=== PATIENT | female | born 1980 | race Caucasian/White ===

== ENCOUNTER → 2023-04-16 14:17 | Outpatient (CLI) | payer MEDICAID, SELFPAY ==
--- NOTE | 2023-04-16 | DI.RAD_ITS ---
Exam(s) XR SACRUM COCCYX XR LUMBAR SPINE COMPLETE EXAM: XR LUMBAR SPINE COMPLETE CLINICAL HISTORY: LOW BACK PAIN, ACUTE M54.59. TECHNIQUE: 2D digital imaging was performed. Five views of the lumbar spine. Four views of the sac rum and coccyx. COMPARISON: CR XR SACRUM COCCYX from 04/16/2023 FINDINGS: BONES: No fracture or destructive lesion. Vertebral body heights are maintained. No facet hypertroph y identified. Small endplate osteophytes L4 and L5. No spondylolysis or spondylolisthesis. DISKS: Intervertebral disc spaces are maintained. Joints: SI joints and pubic symphysis are unremarkable. Her no bony erosions. Hip joint spaces are maintained. ALIGNMENT: Lumbar spinal alignment is within normal limits. SOFT TISSUE: Normal. IMPRESSION: Minimal degenerative changes. DATA REPOSITORY: RADIATION DOSE DELIVERED:
== END ==
PROVIDERS: Visit Provider Nurse Practitioner Family
DX: M54.59 Other low back pain (principal)
CPT/HCPCS: 72110; 72220

== ENCOUNTER 2023-06-29 11:24 | Emergency (ER) | payer MEDICAID, SELFPAY ==
[2023-06-29 11:30] VITALS: BP 121/69; PULSE 79; RESP 18; TEMP 36.8; O2SAT 97
[2023-06-29 13:02] LABS: Abs Immature Grans 0.02 10^3/uL (0.0-0.06); Absolute Basophil Count 0.04 10^3/uL (0.0-0.2); Absolute Eosinophil Count 0.05 10^3/uL (0.0-0.7); Absolute Lymphocyte Count 2.07 10^3/uL (1.2-3.4); Absolute Monocyte Count 0.41 10^3/uL (0.1-0.8); Absolute Neutrophil Count 3.85 10^3/uL (1.2-6.7); Basophils % 0.6; Eosinophils % 0.8; HCT 41.8 % (36.0-46.0); HGB 13.8 g/dL (11.2-15.7); Immature Grans % 0.3; Lymphocytes % 32.1; MCV 91 fL (80-95); MPV 9.1 fL (8.0-11.0); Monocytes % 6.4; Neutrophils % 59.8; Platelet Count 373 10^3/uL (130-400); RDW-SD 39.8 fL; WBC 6.44 10^3/uL (4.4-10.8)
[2023-06-29 13:20] LABS: ALT 14 U/L (14-59); AST 15 U/L (15-37); Alkaline Phosphatase 71 U/L (46-116); Anion Gap 7.4 mmol/L (3-11); BUN 7 mg/dL (7-18); Bilirubin, Direct 0.1 mg/dL (0.0-0.2); Bilirubin, Total 0.5 mg/dL (0.2-1.0); CO2 28.6 mmol/L (21.0-32.0); CREATININE 0.7 mg/dL (0.55-1.02); Calcium 9.3 mg/dL (8.5-10.1); Chloride 104 mmol/L (98-107); Estimated GFR 111.36 (mL/min/1.73m2); Glucose 90 mg/dL (74-106); Potassium 4.3 mmol/L (3.5-5.1); Sodium 140 mmol/L (136-145); Total Protein 7.8 g/dL (6.4-8.2)
[2023-06-29] MEDS: Ketorolac 30 MG/ML VIAL IVP (13:31)
--- NOTE | 2023-06-29 13:32 | W.ED.GENAD ---
HPI General Stated Complaint: Abd Prob Mode of arrival: ambulatory. RADHA: 3 Date/Time Provider Initiated Documentation: 06/29/23 11:50. Limitations to Documentation: no limitations. Information obtained by: patient. History of Present Illness abd pain moderate 5 aching (Cramping) abdomen reports no radiation day(s) (5, reports previous symptoms previously) constant No relieving factors improve symptom(s), Other factors that worsen symptoms (Drinking carbonated beverages such as Mountain Dew or Pepsi) other (Back pain radiating down left leg secondary to fall roughly 10 days ago) none Review of Systems Constitutional Constitutional: Denies fever(s) and Denies weakness Cardiovascular Cardiovascular: Denies chest pain Respiratory Respiratory: Denies cough Gastrointestinal Gastrointestinal: Reports abdominal pain, Denies melena, Denies bloating, Denies hematochezia, Denies change in bowel habits, Denies constipation, Denies diarrhea, Denies nausea, Denies vomiting and Denies hematemesis Genitourinary Genitourinary: Denies dysuria Musculoskeletal Musculoskeletal: Reports back pain, Denies numbness, Denies stiffness and Denies tingling Integumentary/Breasts Skin/Breast: Denies rash Neurologic Neurologic: Denies numbness, Denies tingling and Denies weakness PFSH All Active Problems Abdominal pain (Acute) Left sided sciatica (Acute) Social History Smoking/Tobacco Use Status: Never Smoking risk assessment performed?: Yes Alcohol Intake: never Substance use type: does not use Do you feel safe at home: Yes Do you feel safe in your relationship?: Yes Exam Const General: cooperative, healthy appearing, comfortable and no acute distress Orientation: alert and awake HENMT Head: normal to inspection, normocephalic and atraumatic Mouth: moist mucous membranes Eyes Conjunctivae: conjunctivae normal Neck Neck: normal visual inspection, trachea midline and supple Resp Effort & Inspection: normal respiratory effort and able to speak in complete sentences Auscultation: clear to auscultation bilaterally Cardio Rate: regular rate Rhythm: regular rhythm GI Inspection: normal to inspection Palpation: soft, not firm, no guarding, not rigid and nontender Auscultation: normal bowel sounds Back/Spine/Pelvis Back: no CVA tenderness Thoracic/Lumbar Spine: No lumbar spinal tenderness, straight leg raise positive (Left side, negative right) and other (Diffuse mild left-sided lumbar tenderness, no bony point tenderness. ) Skin General skin exam: no rashes or lesions noted Neuro General: patient alert, patient awake, moves all extremities and no focal motor deficits Gait: normal gait Motor: muscle tone normal throughout Sensory Exam: no sensory deficits noted Extrem General: normal to inspection, full ROM, capillary refill normal, no pedal edema and no calf tenderness Psych Appearance: grossly normal Mental Status: mental status grossly normal Course Vital Signs Vital signs: Vital Signs Temperature 36.8 C 06/29/23 11:30 Pulse 79 06/29/23 11:30 Respiratory Rate 18 06/29/23 11:30 Blood Pressure 121/69 06/29/23 11:30 Pulse Oximetry 97 06/29/23 11:30 Temperature 36.8 C 06/29/23 11:30 Temperature Source Temporal Artery Scan 06/29/23 11:30 Pulse 79 06/29/23 11:30 Respiratory Rate 18 06/29/23 11:30 Respiratory Effort Normal 06/29/23 11:50 Blood Pressure 121/69 06/29/23 11:30 Blood Pressure Position Sitting 06/29/23 11:30 Pulse Oximetry 97 06/29/23 11:30 Oxygen Delivery Method Room Air 06/29/23 11:30 Oxygen Flow Rate 0 06/29/23 11:30 Pain Level 8 06/29/23 11:50 Lab/Test Results Lab/Test Results: Laboratory Tests Range/Units 06/29/23 12:55 WBC (4.4-10.8) 10^3/uL 6.44 RBC (3.93-5.22) 10^6/uL 4.60 Hgb (11.2-15.7) g/dL 13.8 Hct (36.0-46.0) % 41.8 MCV (80-95) fL 91 MCH (27.0-33.0) pg 30.0 MCHC (32.0-36.0) % 33.0 RDW (11.7-14.6) % 12.0 Plt Count (130-400) 10^3/uL 373 MPV (8.0-11.0) fL 9.1 Immature Gran % 0.3 Neutrophils % 59.8 Lymphocytes % 32.1 Monocytes % 6.4 Eosinophils % 0.8 Basophils % 0.6 Nucleated RBC % (0.0-0.3) % 0.0 Absolute Neutrophils (1.2-6.7) 10^3/uL 3.85 Absolute Lymphocytes (1.2-3.4) 10^3/uL 2.07 Absolute Monocytes (0.1-0.8) 10^3/uL 0.41 Absolute Eosinophils (0.0-0.7) 10^3/uL 0.05 Absolute Basophils (0.0-0.2) 10^3/uL 0.04 Sodium (136-145) mmol/L 140 Potassium (3.5-5.1) mmol/L 4.3 Chloride (98-107) mmol/L 104 Carbon Dioxide (21.0-32.0) mmol/L 28.6 Anion Gap (3-11) mmol/L 7.4 BUN (7-18) mg/dL 7 Creatinine (0.55-1.02) mg/dL 0.7 Est GFR (CKD-EPI 2020) (mL/min/1.73m2) 111.36 Glucose (74-106) mg/dL 90 Calcium (8.5-10.1) mg/dL 9.3 Total Bilirubin (0.2-1.0) mg/dL 0.5 Conjugated Bilirubin (0.0-0.2) mg/dL 0.1 AST (15-37) U/L 15 ALT (14-59) U/L 14 Alkaline Phosphatase (46-116) U/L 71 Total Protein (6.4-8.2) g/dL 7.8 Albumin (3.4-5.0) g/dL 4.0 Medical Decision Making This is a 42-year-old female who recently moved here from [place], does not have a primary care provider, denies significant past medical history. She does report x 2 and cholecystectomy. She reports diffuse abdominal pain worse after drinking carbonated beverages, specifically Pepsi and Mountain Dew that has been ongoing for roughly 5 or 6 days. She does state that she has had similar symptoms previously and while in [place] she did have a colonoscopy and endoscopy. She cannot tell me exactly what the results of these were. Subsequently she tells me she fell roughly 10 days ago injuring her lower back, she went to the urgent care and had x-rays which were negative. A couple of days later she felt more stiff and began having left-sided back discomfort with travel down the posterior and lateral aspect of her left lower leg. She began taking Aleve. Wonders if the Aleve has caused her stomach to be upset. Clinically she appears well, nontoxic. Hemodynamically stable. Abdomen is soft, nontender, nonacute. She is neurologically intact, ambulates with out an antalgic gait, no evidence of cauda equina. Plan to obtain IV access, obtain routine screening laboratory values including CBC, CMP, urinalysis and test. Will provide GI cocktail for GI relief as well as Toradol for back relief. Upon reevaluation patient reports that her symptoms are minimally better but have not resolved. Her laboratory values are very reassuring. No evidence of leukocytosis or anemia. Electrolytes are unremarkable. Renal function reveals creatinine 0.7 with a GFR of 111.36. LFTs unremarkable. Discussed in length with patient. Very reassuring evaluation and workup. Given she has already had outpatient imaging and she has no focal neurologic deficit no more bony point tenderness, I do not believe reimaging is necessary. We discussed that she very well may have some GI irritation secondary to NSAIDs. Discussed discontinuing NSAIDs and avoiding carbonated beverages which seem to exacerbate her symptoms. We discussed [id number] Tylenol, gentle stretching, massage, cool and/or warm compresses, Lidoderm patches, etc. She will advance her diet as tolerated once her GI symptoms have resolved. She was encouraged to return to the ER for new or evolving symptoms. I did place the patient on our care management list to help expedite outpatient primary care follow-up as she is new to the area. Standard discharge and return precautions were provided. Patient understands, is agreeable to this plan, and has no additional questions or concerns upon discharge. This documentation was generated using [employer] dictation system, please disregard any oddities of phrase or misspellings. Lab Data Lab results reviewed: Yes I reviewed the patient's lab results. Labs: 06/29/23 13:50 Urine - Reflex from Ua Urine Culture - Pending Laboratory Tests Range/Units 06/29/23 06/29/23 12:55 13:50 WBC (4.4-10.8) 10^3/uL 6.44 RBC (3.93-5.22) 10^6/uL 4.60 Hgb (11.2-15.7) g/dL 13.8 Hct (36.0-46.0) % 41.8 MCV (80-95) fL 91 MCH (27.0-33.0) pg 30.0 MCHC (32.0-36.0) % 33.0 RDW (11.7-14.6) % 12.0 Plt Count (130-400) 10^3/uL 373 MPV (8.0-11.0) fL 9.1 Immature Gran % 0.3 Neutrophils % 59.8 Lymphocytes % 32.1 Monocytes % 6.4 Eosinophils % 0.8 Basophils % 0.6 Nucleated RBC % (0.0-0.3) % 0.0 Absolute Neutrophils (1.2-6.7) 10^3/uL 3.85 Absolute Lymphocytes (1.2-3.4) 10^3/uL 2.07 Absolute Monocytes (0.1-0.8) 10^3/uL 0.41 Absolute Eosinophils (0.0-0.7) 10^3/uL 0.05 Absolute Basophils (0.0-0.2) 10^3/uL 0.04 Sodium (136-145) mmol/L 140 Potassium (3.5-5.1) mmol/L 4.3 Chloride (98-107) mmol/L 104 Carbon Dioxide (21.0-32.0) mmol/L 28.6 Anion Gap (3-11) mmol/L 7.4 BUN (7-18) mg/dL 7 Creatinine (0.55-1.02) mg/dL 0.7 Est GFR (CKD-EPI 2020) (mL/min/1.73m2) 111.36 Glucose (74-106) mg/dL 90 Calcium (8.5-10.1) mg/dL 9.3 Total Bilirubin (0.2-1.0) mg/dL 0.5 Conjugated Bilirubin (0.0-0.2) mg/dL 0.1 AST (15-37) U/L 15 ALT (14-59) U/L 14 Alkaline Phosphatase (46-116) U/L 71 Total Protein (6.4-8.2) g/dL 7.8 Albumin (3.4-5.0) g/dL 4.0 Urine Color (Yellow) Yellow Urine Clarity (Clear) Sl Cloudy Urine pH (5-8) 7.5 Ur Specific [place] (1.005-1.025) 1.015 Urine Protein (Negative) mg/dL Negative Urine Ketones (Negative) mg/dL Negative Urine Blood (Negative) Trace-lysed H Urine Nitrite (Negative) Negative Urine Bilirubin (Negative) Negative Urine Urobilinogen (Up to 0.2) mg/dL 0.2 Ur Leukocyte Esterase (Negative) Negative Urine RBC (0-2) HPF 3-5 H Urine WBC (0-5) HPF 0-2 Ur Epithelial Cells (Negative) HPF Few Urine Crystals (Negative) HPF Negative Urine Bacteria (Negative) HPF Many Urine Casts (Negative) LPF Negative Urine Mucus (Negative) Negative Ur Culture Indicated? Yes Urine Glucose (Negative) mg/dL Negative Quality:SDOH Health Related Social Needs: No Data to Display Discharge Plan Disposition Patient Disposition: Home Discharge Details Clinical Impression: Left sided sciatica, Abdominal pain Primary Care Provider: Unknown,Unknown ED Provider: Efren Marquis Discharge Instructions Instructions: Sciatica (ED), Abdominal Pain (ED) Additional Instructions: Your laboratory values were very reassuring. Avoid carbonated beverages such as Mountain Dew and Pepsi which seem to cause of your symptoms. You may use [id number] medications as directed for stomach relief. Regarding your back and sciatica pain, [id number] medications as directed for discomfort. Gentle stretching as tolerated. Cool and/or warm compresses every 2 hours for 20 minutes. Please watch for new or evolving symptoms and return immediately to the ER. Given you are new to the area and do not have a primary care provider, I have placed you on the care management list to help expedite outpatient primary care follow-up. Discharge Data Discharge Date/Time-TO BE ENTERED AT DEPARTURE: 06/29/23 15:00
--- NOTE | 2023-06-29 14:03 | NUR.NOTE ---
Nursing Note: PT placed on care management referral list. PT needs PCP. Nia, ED
[2023-06-29 14:08] LABS: Bilirubin Negative (Negative); Blood Trace-lysed (Negative); Clarity Sl Cloudy (Clear); Glucose Negative (Negative); Ketones Negative (Negative); Leukocyte Esterase Negative (Negative); Nitrite Negative (Negative); Specific Gravity 1.015 (1.005-1.025); Urobilinogen 0.2 mg/dL (Up to 0.2); pH 7.5 (5-8)
[2023-06-29 14:18] LABS: Bacteria Many HPF (Negative); C & S Indicated? Yes; Casts Negative LPF (Negative); Crystals Negative HPF (Negative); Epithelial Cells Few HPF (Negative); Mucus Negative (Negative); WBC 0-2 HPF (0-5)
== END 2023-06-29 15:00 | disposition home or self-care (01) ==
PROVIDERS: Emergency Provider Physician Assistant
DX: R10.10 Upper abdominal pain, unspecified (principal); Z90.49 Acquired absence of other specified parts of digestive tract; M54.42 Lumbago with sciatica, left side
CPT/HCPCS: 36415; 80053; 80076; 81025; 87077; 96374; 99284; 81003; 81015; 85025; 87086; 87186; J1885

== ENCOUNTER 2023-08-06 11:06 | Emergency (ER) | payer MEDICAID, SELFPAY ==
[2023-08-06 11:16] VITALS: BP 118/54; PULSE 77; RESP 16; TEMP 37; O2SAT 97
--- NOTE | 2023-08-06 13:15 | DI.CT_ITS ---
Exam(s) CT HEAD WO EXAM: CT HEAD WO CLINICAL HISTORY: headache. TECHNIQUE: Imaging Protocol: Axial computed tomography images with coronal and sagittal reformatted images were created and reviewed COMPARISON: No exams were available for comparison FINDINGS: Ventricles and Extra axial spaces: Normal in size and morphology for the patient's age. Hemorrhage: None. Cerebral parenchyma: Normal. Midline shift: None. Brainstem/Cerebellum: Normal. Calvarium: Normal. Visualized Paranasal sinuses/Mastoids: Clear. Soft Tissues: Unremarkable. IMPRESSION: No acute intracranial process. RADIATION DOSE DELIVERED: 663.8mGy.cm Total DLP DATA REPOSITORY: All CT scans at this facility are submitted to the National Radiology Data Registry (NRDR) Dose Index Registry (DIR) with the [employer] (A[employer]). RADIATION OPTIMIZATION: All CT scans at this facility use at least one of these dose optimization te chniques: automated exposure control; mA and/or kV adjustment per patient size (includes targeted exa ms where dose is matched to clinical indication); or iterative reconstruction.
--- NOTE | 2023-08-06 13:15 | DI.CT_ITS ---
Exam(s) CT ABDOMEN PELVIS W EXAM: CT ABDOMEN PELVIS W CLINICAL HISTORY: RLQ pain TECHNIQUE: Imaging Protocol: Axial computed tomography images with coronal and sagittal reformatted images were created and reviewed. CONTRAST MATERIAL: Intravenous: Omnipaque 350 Contrast volume:100 mL Oral: No COMPARISON: No exams were available for comparison FINDINGS: ABDOMEN: Lung Bases: Normal where visualized. Liver: Normal density. No measurable mass. Portal, Superior Mesenteric, and Splenic Veins: Unremarkable. Gallbladder and Biliary Tract: Status post cholecystectomy. No biliary ductal dilatation. Pancreas: Normal density, no abnormal calcifications or inflammatory process. Spleen: Normal. Adrenals: No masses seen. Kidneys: Normal size, contour and axis. No radiodense stones or obstructive uropathy. Bilateral simpl e renal cysts. No follow-up is recommended. Abdominal Aorta: Abdominal portion non-dilated. Bowel: No obstruction or bowel wall thickening. Appendix is unremarkable. Peritoneal Cavity: No ascites, collection or mesenteric inflammatory response. No free air. Lymph Nodes: Within normal limits. Bones: Within normal limits for the patient's age. Soft Tissues: There is a small fat containing umbilical hernia. PELVIS: Bladder: Symmetric distention, no gross wall thickening. Reproductive Organs: Status post hysterectomy. There is a 5 cm right adnexal cystic lesion. This ma y be ovarian in origin. Pelvic ultrasound should be considered for further evaluation. Lymph Nodes: Within normal limits. Bones: Within normal limits for the patient's age. IMPRESSION: 1. Normal appendix. 2. 5 cm right adnexal cystic lesion. This may be ovarian in origin. A pelvic ultrasound may be obta ined for further evaluation. 3. No evidence of nephrolithiasis or obstructive uropathy. 4. Status post cholecystectomy. No biliary ductal dilatation. RADIATION DOSE DELIVERED: 589.88mGy.cm Total DLP DATA REPOSITORY: All CT scans at this facility are submitted to the National Radiology Data Registry (NRDR) Dose Index Registry (DIR) with the [employer] (ACR). RADIATION OPTIMIZATION: All CT scans at this facility use at least one of these dose optimization te chniques: automated exposure control; mA and/or kV adjustment per patient size (includes targeted exa ms where dose is matched to clinical indication); or iterative reconstruction.
[2023-08-06 13:50] LABS: Abs Immature Grans 0.01 10^3/uL (0.0-0.06); Absolute Basophil Count 0.03 10^3/uL (0.0-0.2); Absolute Eosinophil Count 0.03 10^3/uL (0.0-0.7); Absolute Lymphocyte Count 1.87 10^3/uL (1.2-3.4); Absolute Monocyte Count 0.41 10^3/uL (0.1-0.8); Absolute Neutrophil Count 5.03 10^3/uL (1.2-6.7); Basophils % 0.4; Eosinophils % 0.4; HCT 38.9 % (36.0-46.0); Immature Grans % 0.1; Lymphocytes % 25.3; MCH 30.9 pg (27.0-33.0); MCHC 33.4 % (32.0-36.0); MCV 92 fL (80-95); MPV 9.8 fL (8.0-11.0); Monocytes % 5.6; Neutrophils % 68.2; Platelet Count 330 10^3/uL (130-400); RBC 4.21 10^6/uL (3.93-5.22); WBC 7.38 10^3/uL (4.4-10.8)
[2023-08-06 14:06] LABS: Lipase 21 U/L (16-77)
[2023-08-06 14:08] LABS: ALT 14 U/L (14-59); AST 16 U/L (15-37); Albumin 3.9 g/dL (3.4-5.0); Alkaline Phosphatase 68 U/L (46-116); BUN 7 mg/dL (7-18); Bilirubin, Total 0.6 mg/dL (0.2-1.0); CREATININE 0.6 mg/dL (0.55-1.02); Calcium 8.4 mg/dL (8.5-10.1); Chloride 106 mmol/L (98-107); Estimated GFR 115.57 (mL/min/1.73m2); Glucose 96 mg/dL (74-106); Magnesium 2.5 mg/dL (1.8-2.4); Potassium 3.5 mmol/L (3.5-5.1); Sodium 140 mmol/L (136-145); Total Protein 7.2 g/dL (6.4-8.2)
[2023-08-06] MEDS: ACETAMINOPHEN 1,000 MG/100 ML BTL 400 MG IVPB (14:11)
[2023-08-06] MEDS: Omnipaque 350 MG/ML 100 ML BTL IJ (15:10)
[2023-08-06] MEDS: Normal Saline - Diluent 50 ML VIAL IJ (15:12)
--- NOTE | 2023-08-06 15:18 | W.ED.GENAD ---
Discharge Plan Disposition Patient Disposition: Home Discharge Details Clinical Impression: Ovarian cyst, Migraine Primary Care Provider: None,None ED Provider: Hesham Dorsey Home Meds and New Rx's Prescriptions: No Action albuterol sulfate 2 puff inhalation PRN famotidine 20 mg tablet 20 mg PO BID Qty: 180 2RF Discharge Instructions Instructions: Ovarian Cyst (ED), General Headache (ED) Additional Instructions: At this time I feel that your headache is secondary to your migraines. Take your normal migraine medication as needed for discomfort Your abdominal pain seems to be coming from a 5 cm right sided ovarian cyst. You have been referred to [facility] and I would call their office tomorrow morning for arrangement of your follow-up appointment If you have any new or significant worsening of symptoms return to the emergency department for reassessment otherwise follow-up as noted above For pain control you may continue to take 600 mg of Motrin along with 650 of Tylenol every 6 hours Referrals: [facility] [place] [Provider Group] - 5 days Discharge Data Discharge Date/Time-TO BE ENTERED AT DEPARTURE: 08/06/23 16:28 HPI General Mode of arrival: ambulatory. Date/Time Provider Initiated Documentation: 08/06/23 11:49. Limitations to Documentation: no limitations. Information obtained by: patient and RN notes reviewed. History of Present Illness 42 year old F presents to the emergency department with the chief complaint of Right lower quadrant abdominal pain, headache, described as moderate, and is localized to the abdomen. Patient started experiencing this week(s) (1) and it has been constant. No relieving factors improve symptom(s), No exacerbating factors reported . Patient notes no other symptoms.. Patient did receive the following treatments prior to arrival, none Related Data Home Medications Medication Instructions Recorded Confirmed albuterol sulfate 2 puff inhalation PRN 07/13/23 08/06/23 famotidine 20 mg tablet 20 mg PO BID #180 tabs 08/03/23 08/06/23 Previous Rx's Medication Instructions Recorded famotidine 20 mg tablet 20 mg PO BID #180 tabs 08/03/23 Allergies Allergy/AdvReac Type Severity Reaction Status Date / Time lansoprazole Allergy Mild Skin Rash Verified 08/06/23 11:21 Penicillins Allergy Mild Skin Rash Verified 08/06/23 11:21 Sulfa (Sulfonamide Allergy Mild Skin Rash Verified 08/06/23 11:21 Antibiotics) Aspirin Allergy Mild Skin Rash Uncoded 08/06/23 11:21 General Stated Complaint: GenMedical RADHA: 3 Review of Systems Constitutional Constitutional: Denies chills, Denies fever(s), Reports headache(s) and Denies poor appetite ENT Ears, Nose, Mouth, and Throat: Reports headache(s) Cardiovascular Cardiovascular: Denies chest pain and Denies dyspnea Respiratory Respiratory: Denies cough and Denies dyspnea Gastrointestinal Gastrointestinal: Reports as per HPI, Reports abdominal pain, Denies melena, Denies change in bowel habits, Denies constipation, Denies diarrhea, Denies nausea and Denies vomiting Genitourinary Genitourinary: Denies hematuria, Denies pelvic pain and Denies vaginal discharge Integumentary/Breasts Skin/Breast: Denies rash Neurologic Neurologic: Reports headache(s) Exam Const General: cooperative Orientation: alert, awake and oriented x3 Eyes Visual Bonner: normal visual bonner by confrontation Alignment and Position: alignment normal Periorbital: periorbital findings normal Eyelids: eyelids normal Sclera: sclerae normal Pupils: PERRL EOM: EOM intact bilaterally Neck Neck: normal visual inspection, full ROM and no meningeal signs Resp Effort & Inspection: normal respiratory effort and able to speak in complete sentences Auscultation: clear to auscultation bilaterally Cardio Rate: regular rate Rhythm: regular rhythm Heart Sounds: S1 normal and S2 normal GI Palpation: soft, no hepatosplenomegaly, not firm, no guarding, no masses, no pulsatile masses, not rigid, no splenomegaly and tender in the RLQ; Moore's sign negative and with no rebound tenderness Auscultation: normal bowel sounds Back/Spine/Pelvis Back: no CVA tenderness Neuro General: patient alert, patient awake, patient oriented x3, gait normal, moves all extremities, no focal motor deficits and CN's II-XI intact bilaterally Cognition: normal cognition Speech: speech normal Motor: muscle tone normal throughout, strength 5/5 throughout, no movement abnormalities noted and no fasciculations Sensory Exam: no sensory deficits noted Coordination: Does not sway with eyes open Course Vital Signs Vital signs: Vital Signs Temperature 37.0 C 08/06/23 11:16 Pulse 77 08/06/23 11:16 Respiratory Rate 16 08/06/23 11:16 Blood Pressure 118/54 L 08/06/23 11:16 Pulse Oximetry 97 08/06/23 11:16 Temperature 37.0 C 08/06/23 11:16 Temperature Source Temporal Artery Scan 08/06/23 11:16 Pulse 77 08/06/23 11:16 Respiratory Rate 16 08/06/23 11:16 Respiratory Effort Normal, Non-Labored 08/06/23 13:37 Respiratory Depth Normal 08/06/23 13:37 Respiratory Pattern Normal 08/06/23 13:37 Blood Pressure 118/54 L 08/06/23 11:16 Blood Pressure Position Sitting 08/06/23 11:16 Pulse Oximetry 97 08/06/23 11:16 Oxygen Delivery Method Room Air 08/06/23 13:37 Oxygen Flow Rate 0 08/06/23 11:16 Pain Level 9 08/06/23 11:16 Lab/Test Results Lab/Test Results: Laboratory Tests Range/Units 08/06/23 13:34 WBC (4.4-10.8) 10^3/uL 7.38 RBC (3.93-5.22) 10^6/uL 4.21 Hgb (11.2-15.7) g/dL 13.0 Hct (36.0-46.0) % 38.9 MCV (80-95) fL 92 MCH (27.0-33.0) pg 30.9 MCHC (32.0-36.0) % 33.4 RDW (11.7-14.6) % 13.0 Plt Count (130-400) 10^3/uL 330 MPV (8.0-11.0) fL 9.8 Immature Gran % 0.1 Neutrophils % 68.2 Lymphocytes % 25.3 Monocytes % 5.6 Eosinophils % 0.4 Basophils % 0.4 Nucleated RBC % (0.0-0.3) % 0.0 Absolute Neutrophils (1.2-6.7) 10^3/uL 5.03 Absolute Lymphocytes (1.2-3.4) 10^3/uL 1.87 Absolute Monocytes (0.1-0.8) 10^3/uL 0.41 Absolute Eosinophils (0.0-0.7) 10^3/uL 0.03 Absolute Basophils (0.0-0.2) 10^3/uL 0.03 Sodium (136-145) mmol/L 140 Potassium (3.5-5.1) mmol/L 3.5 Chloride (98-107) mmol/L 106 Carbon Dioxide (21.0-32.0) mmol/L 26.0 Anion Gap (3-11) mmol/L 8.0 BUN (7-18) mg/dL 7 Creatinine (0.55-1.02) mg/dL 0.6 Est GFR (CKD-EPI 2020) (mL/min/1.73m2) 115.57 Glucose (74-106) mg/dL 96 Calcium (8.5-10.1) mg/dL 8.4 L Magnesium (1.8-2.4) mg/dL 2.5 H Total Bilirubin (0.2-1.0) mg/dL 0.6 AST (15-37) U/L 16 ALT (14-59) U/L 14 Alkaline Phosphatase (46-116) U/L 68 Total Protein (6.4-8.2) g/dL 7.2 Albumin (3.4-5.0) g/dL 3.9 Lipase (16-77) U/L 21 Medical Decision Making Patient presenting to the emergency department for chief complaint of abdominal pain x 2 weeks which is not getting better and then today she started also having left-sided headache. She does have a history of migraines and states this is similar but did have concern due to mother having aneurysm. Patient denies all other symptoms beyond the headache and abdominal pain. Patient has significant past medical history to include developmental delay, cholecystectomy, hysterectomy with bilateral oophorectomy, migraine. Physical exam shows normal neuro exam, right lower quadrant abdominal tenderness without rebound or roving sign, otherwise noncontributory exam. Given 2 weeks of persistent abdominal pain with palpable tenderness will perform labs and CT imaging. Given family history of aneurysm will perform CT head imaging but have low suspicion of significant intercranial abnormality. Pending results will give IV acetaminophen Reviewed labs and CBC is unremarkable, CMP shows slightly decreased calcium 8.4 and magnesium at 2.[address] head was unremarkable and CT abdomen shows 5 cm right adnexal cystic lesion. Discussed this with patient and patient stated that when she had her hysterectomy they did leave 1 ovary and took the other ovary due to ovarian cyst. I do feel that this 5cm cyst is more than likely a reoccurrence of this. Patient did state that pain has completely resolved after the IV acetaminophen. Discussed continued NSAID and acetaminophen use on outpatient basis and patient was placed on a referral to [facility] for reassessment and consideration of outpatient ultrasound for her adnexal cyst. After discussion of diagnosis and plan of care patient has no further needs, questions, or concerns and states clear understanding to return to the emergency department for any worsening symptoms. This documentation was generated using [employer] dictation system, please disregard any oddities of phrase or misspellings. Imaging Data Radiologic Study: Imaging: CT Scan Radiologist's impression: Exam(s) CT HEAD WO EXAM: CT HEAD WO CLINICAL HISTORY: headache. TECHNIQUE: Imaging Protocol: Axial computed tomography images with coronal and sagittal reformatted images were created and reviewed COMPARISON: No exams were available for comparison FINDINGS: Ventricles and Extra axial spaces: Normal in size and morphology for the patient's age. Hemorrhage: None. Cerebral parenchyma: Normal. Midline shift: None. Brainstem/Cerebellum: Normal. Calvarium: Normal. Visualized Paranasal sinuses/Mastoids: Clear. Soft Tissues: Unremarkable. IMPRESSION: No acute intracranial process. Radiologic Study #2: Imaging: CT Scan Radiologist's impression: Exam(s) CT ABDOMEN PELVIS W EXAM: CT ABDOMEN PELVIS W CLINICAL HISTORY: RLQ pain TECHNIQUE: Imaging Protocol: Axial computed tomography images with coronal and sagittal reformatted images were created and reviewed. CONTRAST MATERIAL: Intravenous: Omnipaque 350 Contrast volume:100 mL Oral: No COMPARISON: No exams were available for comparison FINDINGS: ABDOMEN: Lung Bases: Normal where visualized. Liver: Normal density. No measurable mass. Portal, Superior Mesenteric, and Splenic Veins: Unremarkable. Gallbladder and Biliary Tract: Status post cholecystectomy. No biliary ductal dilatation. Pancreas: Normal density, no abnormal calcifications or inflammatory process. Spleen: Normal. Adrenals: No masses seen. Kidneys: Normal size, contour and axis. No radiodense stones or obstructive uropathy. Bilateral simple renal cysts. No follow-up is recommended. Abdominal Aorta: Abdominal portion non-dilated. Bowel: No obstruction or bowel wall thickening. Appendix is unremarkable. Peritoneal Cavity: No ascites, collection or mesenteric inflammatory response. No free air. Lymph Nodes: Within normal limits. Bones: Within normal limits for the patient's age. Soft Tissues: There is a small fat containing umbilical hernia. PELVIS: Bladder: Symmetric distention, no gross wall thickening. Reproductive Organs: Status post hysterectomy. There is a 5 cm right adnexal cystic lesion. This may be ovarian in origin. Pelvic ultrasound should be considered for further evaluation. Lymph Nodes: Within normal limits. Bones: Within normal limits for the patient's age. IMPRESSION: 1. Normal appendix. 2. 5 cm right adnexal cystic lesion. This may be ovarian in origin. A pelvic ultrasound may be obtained for further evaluation. 3. No evidence of nephrolithiasis or obstructive uropathy. 4. Status post cholecystectomy. No biliary ductal dilatation. Lab Data Lab results reviewed: Yes I reviewed the patient's lab results. Quality:SDOH Health Related Social Needs: No Data to Display PFSH All Active Problems (Updated 08/06/23 @ 16:17 by Hesham Dorsey NP) Migraine (Chronic) Ovarian cyst (Acute) Family history of aneurysm of blood vessel of brain (Acute) Family history of lung cancer (Acute) Family history of colon cancer (Acute) Upper GI bleed (Acute) [facility] History of cholecystectomy (Chronic) Abdominal pain (Acute) Developmental disability (Acute) Edentulous (Acute) Previous section (Chronic) History of hysterectomy with bilateral oophorectomy (Acute) History of migraine (Acute) Social History Smoking/Tobacco Use Status: Never Smoking risk assessment performed?: Yes Alcohol Intake: never Substance use type: does not use Housing: apartment Do you feel safe at home: Yes Do you feel safe in your relationship?: Yes
[2023-08-06 16:22] VITALS: BP 115/68; PULSE 65; RESP 16; O2SAT 98
--- NOTE | 2023-08-06 16:46 | NUR.NOTE ---
Referral faxed to [facility] for 5cm ovarian cyst x2 weeks for this week. Nursing Note:
== END 2023-08-06 16:28 | disposition home or self-care (01) ==
PROVIDERS: Emergency Provider Nurse Practitioner Family
DX: R10.32 Left lower quadrant pain (principal); R51.9 Headache, unspecified; N83.201 Unspecified ovarian cyst, right side
CPT/HCPCS: 36415; 80053; 83690; 96374; 99285; 70450; 74177; 83735; 85025; 99284; J0131; J3490

== ENCOUNTER 2023-09-03 10:59 | Emergency (ER) | payer MEDICAID, SELFPAY ==
[2023-09-03 11:01] VITALS: BP 115/64; PULSE 78; RESP 16; TEMP 36.8; O2SAT 98
[2023-09-03 11:09] VITALS: BP 115/64; PULSE 78; RESP 16; TEMP 36.8; O2SAT 98
--- NOTE | 2023-09-03 11:30 | DI.US_ITS ---
Exam(s) US PELVIS TRANSVAGINAL EXAM: US PELVIS TRANSVAGINAL CLINICAL HISTORY: pelvis pain, Right adnexal cyst TECHNIQUE: Ultrasound of the pelvis was performed both transabdominal and transvaginal. COMPARISON: CT CT ABDOMEN PELVIS W from 08/06/2023 of 08/06/2023 was reviewed. FINDINGS: The uterus and left ovary are surgically absent RIGHT OVARY: Measures 4.5 x 2.7 x 4.5 cm Contains multiple simple follicular cysts, the largest measuring 2.7 x 1.3 x 1.8 cm. Previously present larger cysts in the right adnexa measuring 5 cm is not seen on the present study. The largest cyst measures 2.7 cm at this time. CUL-DE-SAC: No free fluid evident. IMPRESSION: 1. Uterus and left ovary are surgically absent. 2. Multiple cysts in the right ovary measuring up to 2.7 cm. The 5 cm cysts seen on the CT T scan of 08/06/2023 has either decreased in size or resolved. There are no solid masses nor hemorrhagic cyst s evident in the right ovary. 3. No free fluid evident in the adnexal regions and cul-de-sac. DATA REPOSITORY:
[2023-09-03] MEDS: Normal Saline 1,000 ML 1000 ML IV (12:00)
[2023-09-03] MEDS: Famotidine 20 MG/2 ML VIAL IVP (12:00)
[2023-09-03] MEDS: Ketorolac 15 MG/ML VIAL IVP (12:00)
[2023-09-03 12:04] LABS: Abs Immature Grans 0.02 10^3/uL (0.0-0.06); Absolute Basophil Count 0.03 10^3/uL (0.0-0.2); Absolute Eosinophil Count 0.04 10^3/uL (0.0-0.7); Absolute Lymphocyte Count 1.47 10^3/uL (1.2-3.4); Absolute Neutrophil Count 3.65 10^3/uL (1.2-6.7); Basophils % 0.5; Eosinophils % 0.7; HGB 13.6 g/dL (11.2-15.7); Immature Grans % 0.4; Lymphocytes % 26.7; MCH 30.7 pg (27.0-33.0); MCHC 33.2 % (32.0-36.0); MCV 93 fL (80-95); MPV 9.8 fL (8.0-11.0); Monocytes % 5.4; Neutrophils % 66.3; Platelet Count 322 10^3/uL (130-400); RBC 4.43 10^6/uL (3.93-5.22); RDW 12.7 % (11.7-14.6); RDW-SD 43.3 fL; WBC 5.51 10^3/uL (4.4-10.8)
[2023-09-03 12:19] LABS: ALT 18 U/L (14-59); AST 17 U/L (15-37); Albumin 3.6 g/dL (3.4-5.0); Alkaline Phosphatase 66 U/L (46-116); Anion Gap 5.8 mmol/L (3-11); BUN 8 mg/dL (7-18); Bilirubin, Total 0.7 mg/dL (0.2-1.0); CO2 28.2 mmol/L (21.0-32.0); CREATININE 0.6 mg/dL (0.55-1.02); Calcium 8.5 mg/dL (8.5-10.1); Chloride 107 mmol/L (98-107); Estimated GFR 115.57 (mL/min/1.73m2); Glucose 93 mg/dL (74-106); Lipase 23 U/L (16-77); Potassium 4.2 mmol/L (3.5-5.1); Sodium 141 mmol/L (136-145); Total Protein 6.9 g/dL (6.4-8.2)
--- NOTE | 2023-09-03 12:50 | ED.GENADUL_ITS ---
Discharge Plan Disposition Patient Disposition: Home Condition: Improving Discharge Details Clinical Impression: UTI (urinary tract infection) Primary Care Provider: Unknown,Unknown ED Provider: Jose Donovan Home Meds and New Rx's Prescriptions: New ciprofloxacin HCl 250 mg tablet 250 mg PO BID 3 Days Qty: 6 0RF phenazopyridine [Pyridium] 100 mg tablet 100 mg PO TID PRNQty: 6 0RF Rx Instructions: prn dysuria No Action albuterol sulfate 2 puff inhalation PRN famotidine 20 mg tablet 20 mg PO BID Qty: 180 2RF Discharge Instructions Instructions: Urinary Tract Infection in Women (ED) HPI General Date/Time Provider Initiated Documentation: 09/03/23 11:25 . HPI Narrative: 42-year-old female presents with recurrent suprapubic and right lower quadrant abdominal discomfort. Denies nausea vomiting fevers chills vaginal bleeding or discharge. Denies urinary symptoms. Recently diagnosed with right ovarian cyst. History of partial hysterectomy Related Data Home Medications Medication Instructions Recorded Confirmed albuterol sulfate 2 puff inhalation PRN 07/13/23 09/03/23 famotidine 20 mg tablet 20 mg PO BID #180 tabs 08/03/23 09/03/23 ciprofloxacin HCl 250 mg tablet 250 mg PO BID 3 days #6 tabs 09/03/23 phenazopyridine 100 mg tablet 100 mg PO TID PRN #6 tabs 09/03/23 (Pyridium) Previous Rx's Medication Instructions Recorded famotidine 20 mg tablet 20 mg PO BID #180 tabs 08/03/23 ciprofloxacin HCl 250 mg tablet 250 mg PO BID 3 days #6 tabs 09/03/23 phenazopyridine 100 mg tablet 100 mg PO TID PRN #6 tabs 09/03/23 (Pyridium) Allergies Allergy/AdvReac Type Severity Reaction Status Date / Time lansoprazole Allergy Mild Skin Rash Verified 09/03/23 11:07 Penicillins Allergy Mild Skin Rash Verified 09/03/23 11:07 Sulfa (Sulfonamide Allergy Mild Skin Rash Verified 09/03/23 11:07 Antibiotics) Aspirin Allergy Mild Skin Rash Uncoded 09/03/23 11:07 General Stated Complaint: Abd Prob RADHA: 3 Review of Systems Narrative: Review of Systems Constitutional: negative Eyes: negative ENT: negative Cardiovascular: negative Respiratory: negative Gastrointestinal: Suprapubic and right lower quadrant abdominal pain : negative Musculoskeletal: negative Skin: negative Neurologic: negative Psych: negative Exam Narrative Exam Narrative: Physical Examination General: alert, awake, cooperative, resting comfortably, no acute distress HEENT: normocephalic, atraumatic; PERRL, EOM intact, conjunctiva normal; no nasal discharge; moist mucous membranes, oral and pharyngeal mucosa normal, tolerating secretions Neck: supple, trachea midline; full ROM Chest: normal to inspection Respiratory: normal respiratory effort, speaking in full sentences, clear to auscultation, no wheezing, rales or rhonchi Cardiac: regular rate, regular rhythm, S1S2 intact, no murmurs rubs or gallops GI: abdomen soft, non-tender, non-distended; no palpable mass or hepatosplenomegaly Skin: no lesions, rashes or trauma appreciated Neuro: AAOx3, normal speech, moving all extremities Psych: Appropriate mood and affect Course Vital Signs Vital signs: Vital Signs Temperature 36.8 C 09/03/23 11:01 Pulse 78 09/03/23 11:01 Respiratory Rate 16 09/03/23 11:01 Blood Pressure 115/64 09/03/23 11:01 Pulse Oximetry 98 09/03/23 11:01 Temperature 36.8 C 09/03/23 11:09 Pulse 78 09/03/23 11:09 Respiratory Rate 16 09/03/23 11:09 Respiratory Effort Normal, Non-Labored 09/03/23 11:07 Blood Pressure 115/64 09/03/23 11:09 Pulse Oximetry 98 09/03/23 11:09 Pain Level 10 09/03/23 11:09 Lab/Test Results Lab/Test Results: Laboratory Tests Range/Units 09/03/23 12:00 WBC (4.4-10.8) 10^3/uL 5.51 RBC (3.93-5.22) 10^6/uL 4.43 Hgb (11.2-15.7) g/dL 13.6 Hct (36.0-46.0) % 41.0 MCV (80-95) fL 93 MCH (27.0-33.0) pg 30.7 MCHC (32.0-36.0) % 33.2 RDW (11.7-14.6) % 12.7 Plt Count (130-400) 10^3/uL 322 MPV (8.0-11.0) fL 9.8 Immature Gran % 0.4 Neutrophils % 66.3 Lymphocytes % 26.7 Monocytes % 5.4 Eosinophils % 0.7 Basophils % 0.5 Nucleated RBC % (0.0-0.3) % 0.0 Absolute Neutrophils (1.2-6.7) 10^3/uL 3.65 Absolute Lymphocytes (1.2-3.4) 10^3/uL 1.47 Absolute Monocytes (0.1-0.8) 10^3/uL 0.30 Absolute Eosinophils (0.0-0.7) 10^3/uL 0.04 Absolute Basophils (0.0-0.2) 10^3/uL 0.03 Sodium (136-145) mmol/L 141 Potassium (3.5-5.1) mmol/L 4.2 Chloride (98-107) mmol/L 107 Carbon Dioxide (21.0-32.0) mmol/L 28.2 Anion Gap (3-11) mmol/L 5.8 BUN (7-18) mg/dL 8 Creatinine (0.55-1.02) mg/dL 0.6 Est GFR (CKD-EPI 2020) (mL/min/1.73m2) 115.57 Glucose (74-106) mg/dL 93 Calcium (8.5-10.1) mg/dL 8.5 Total Bilirubin (0.2-1.0) mg/dL 0.7 AST (15-37) U/L 17 ALT (14-59) U/L 18 Alkaline Phosphatase (46-116) U/L 66 Total Protein (6.4-8.2) g/dL 6.9 Albumin (3.4-5.0) g/dL 3.6 Lipase (16-77) U/L 23 Medical Decision Making 42-year-old female history of right ovarian cyst presents with right lower quadrant abdominal pain and suprapubic discomfort, denies vaginal bleeding or discharge denies urinary symptoms. No nausea no vomiting no fevers no chills. Patient afebrile nontoxic nonperitoneal. Consider symptomatic ovarian cyst lower suspicion for ovarian torsion must also consider UTI low suspicion for appendicitis colitis enteritis bowel obstruction or malignant process given history physical and recent CT scan. Will obtain pelvic ultrasound, basic labs urinalysis close reassessment 15: 30 resting comfortably no acute distress feeling better after meds. Re solving right adnexal cyst. Evidence of UTI. Quality:SDOH Health Related Social Needs: No Data to Display PFSH All Active Problems (Updated 09/03/23 @ 15:31 by Jose Donovan MD) UTI (urinary tract infection) (Acute) Factitious disorder with physical symptoms (Acute) Elevated LDL cholesterol level (Acute) Developmental delay, mild (Acute) Depression (Chronic) Chronic abdominal pain (Acute) Bilateral foot pain (Acute) Asthma (Chronic) Migraine (Chronic) Ovarian cyst (Acute) Upper GI bleed (Acute) 2021 [facility] Developmental disability (Acute) Edentulous (Acute) Medical History (Updated 09/03/23 @ 15:31 by Jose Donovan MD) Family history of aneurysm of blood vessel of brain Family history of lung cancer Family history of colon cancer History of migraine Surgical History (Updated 08/09/23 @ 15:35 by Alka Albarran MD) History of hysterectomy with salpingectomy 2005 for heavy bleeding. S/p failed ablation History of cholecystectomy Previous section Social History (Updated 08/29/23 @ 11:19 by Celine Wiggins) Smoking/Tobacco Use Status: Current-Occasional Tobacco Type: cigarettes Second Hand Exposure: No Smoking risk assessment performed?: Yes Alcohol Intake: never Drug use: Occasionally Substance use type: does not use Adopted: No Caregiver/Support person: No Household members: none Housing: house Number of Children: 2 number of grandchildren: 0 Communication Needs: Cannot Read Education Level: high school Do you need help understanding health information?: Always current occupation: None Pets and animals: Yes (2) Pets and animals: cat(s) Sexually active: Yes Do you think of yourself as: straight/heterosexual Current gender identity: female What is your relationship status?: refused to answer How often do you talk on the phone with friends or family?: three or more times per week How often do you get together with friends or relatives?: twice per week Do you belong to any clubs or organized social groups?: no Panel score (0-1 are the most socially isolated patients): 1 Erin/Mandaeism: [employer] Seatbelt use: always Helmet use: No Drive intox or ride w/intox armor reconnaissance vehicle driver: No Do you feel safe at home: Yes Do you feel safe in your relationship?: Yes History History 3 Para 2 Hx # Term Pregnancies 1 Multiple births Hx # Pregnancies 1 Ectopic pregnancies AB induced Hx Number of Living Children 2 AB spontaneous 1 Past Pregnancies Del. Date GA/Weeks # Preg Succ Route Wgt Sex Labor Lgth Anesth esia Location [facility] 09/26/99 40 No Yes 4365.827 g Female f [place] 11/21/05 32 No Yes 2239.612 g Female F [place]
[2023-09-03 15:07] LABS: Bilirubin Negative (Negative); Blood Small (Negative); Clarity Sl Cloudy (Clear); Glucose Negative (Negative); Ketones 40 mg/dL (Negative); Leukocyte Esterase Negative (Negative); Nitrite Positive (Negative); Specific Gravity >= 1.030 (1.005-1.025); Urobilinogen 0.2 mg/dL (Up to 0.2)
[2023-09-03 15:18] LABS: WBC 0-2 HPF (0-5)
[2023-09-03 15:19] LABS: Bacteria Many HPF (Negative); C & S Indicated? Yes; Casts Negative LPF (Negative); Crystals Negative HPF (Negative); Epithelial Cells Few HPF (Negative); Mucus Moderate (Negative)
== END 2023-09-03 15:58 | disposition home or self-care (01) ==
PROVIDERS: Emergency Provider Emergency Medicine
DX: R10.31 Right lower quadrant pain (principal); N39.0 Urinary tract infection, site not specified; Z87.42 Personal history of other diseases of the female genital tract
CPT/HCPCS: 80053; 83690; 87077; 96361; 96374; 96375; 99284; 76830; 76856; 81003; 81015; 85025; 87086; 87186; 99283; J1885

== ENCOUNTER 2023-10-02 07:59 | Day surgery (SDC) | payer MEDICAID, SELFPAY ==
--- NOTE | 2023-10-01 22:15 | W.PM.DSUDISC ---
Date of service: 10/02/23 Time of Service: 11:00 Discharge Plan Disposition Patient Disposition: Home Condition: Good Discharge Details Reason For Visit: hernia repair Attending Provider: Ivy Sultana Primary Care Provider: Lisa Khan Home Meds and New Rx's Prescriptions: New tramadol 50 mg tablet 50 mg PO Q4H PRN (Reason: pain (scale score 7-10)) Qty: 14 0RF Continued albuterol sulfate 2 puff inhalation PRN Discharge Instructions Additional Instructions: HERNIA REPAIR ? POSTOPERATIVE INSTRUCTIONS Patients who have this type of surgery can usually be expected to return to work within two weeks and have minimal amounts of discomfort. ? ACTIVITY: The day of surgery should be spent resting. However, you can be up for short periods of time, I.E., going to the bathroom or kitchen. Avoid lifting or straining. On the day following surgery, you can be up and about as desired. ? LIFTING: Restrict your lifting to no more than five (5) pounds for two weeks after surgery. ??We will decide when you are done with restrictions and when you can return to work, at your follow-up appointment.? No sexual activity for two weeks.? ? DIET: There are no dietary restrictions following surgery. However, you may want to start with small amounts of liquids to avoid nausea the day of surgery. ? INCISION CARE: You will notice purple skin glue closing the incision.? Do not peel this off- it will wear off on its own.? After 24 hours you may shower. The dressing may be replaced for comfort, but is not necessary. ?An ice bag may be applied to the incision for 72 hours following surgery. ? SIGNS OF INFECTION: It is not unusual to have some black and blue discoloration of the skin around the incision.? ?It will slowly disappear. If you have any increased redness, drainage, fever (above 100 degrees), please contact your doctor for an examination. ? DISCOMFORT: You may expect to have some mild discomfort at the incision sight. If severe pain develops you should contact your doctor for further instructions. ? DRIVING: NO driving for three (3) days after surgery, or if you are still taking narcotic pain medication.? ? MEDICATIONS: Alternate Tylenol 1000mg by mouth every 8 hours and Ibuprofen 600mg every 6 hours. ?Make sure you take ibuprofen with food and not on an empty stomach. ?Take the Tylenol and ibuprofen continuously for the first 72hrs- not just when you have pain.? Use the tramadol for breakthrough pain/pain >7.? Use ICE!?? Twenty minutes on, and then off, continuously for the first 72hours. If you are taking narcotic pain medication, follow the instructions on the label and do not drive. Pain medications can make you very constipated. Make sure you are moving your bowels daily. If not, take Miralax or Milk of Magnesia.?? Anesthesia makes you very constipated.? Take a dose of milk of magnesia the morning after surgery. ? REPORT: Unusual swelling, severe pain, unresolved nausea, signs of infection, or difficulty in urination to your surgeon. Follow up in clinic with Dr. Sultana in 2 weeks.? [phone] Activity:: see above Remove Dressings/Wound Care:: 24 hours Shower/Bathe:: 24 hours Diet:: As Tolerated Discharge Orders Discharge Orders: Discharge Order (Routine); Ordered 10/01/23 Ordered By: Ivy Sultana DS: Diagnosis Discharge Diagnosis (1) Elevated LDL cholesterol level: Status: Acute (2) Depression: Status: Chronic (3) Edentulous: Status: Acute (4) Umbilical hernia: Status: Acute Asessment and Plan: The patient is doing well post-op from their [] surgery.? They are having no nausea or vomiting. They are tolerating liquids and a snack. The pt is not having any chest pain or SOB.? Their pain is adequately controlled. They have been able to urinate.? ?HEENT:? no eye pain/drainage/redness/swelling. Mild sore throat ?Cardio- NSR, no chest pain, BP stable- see VS record ?Pulm: no sob or productive cough. No hemoptysis ?Incision- dressing is c/d/i w/ no excessive bleeding or drainage ?I discussed with the patient the findings at the time of surgery and the patient?s progress. ?We reviewed expectations at home; what the patient could expect for recovery time, and in the post-operative period.? We discussed the importance of walking to avoid blood clots and pneumonia.? We discussed and reviewed the patient's post-operative wound care and dressing needs.?? We reviewed their step-bush pain management plan, Rx called to the pharmacy of their choice.? We reviewed activity and limitations-see discharge instructions. We reviewed warning signs, and when to seek medical attention- see d/c instructions.?? Patient was given a postoperative follow-up appointment. Patient verbalized understanding of their postoperative instructions, how do to take care of themselves and their incision, and the pain management plan. Please see discharge instructions.? (5) Chronic abdominal pain: Status: Acute (6) Pelvic pain: Status: Acute (7) Asthma: Status: Chronic (8) GERD (gastroesophageal reflux disease):
--- NOTE | 2023-10-01 22:24 | ROE_ITS ---
Date of service: 10/02/23 Time of Service: 11:01 Operative Note Operative Note DATE OF PROCEDURE: 10/02/23 PRE-OP DIAGNOSIS: umbilical hernia repair POST-OP DIAGNOSIS: same SURGEON: Ivy Sultana [employer] OFFICER: Claudine Friedman ANESTHESIA TYPE: Local By Surgeon, General LMA/ETT and Primary Nerve Block Refer to Anesthesia Record ESTIMATED BLOOD LOSS: 2 PATHOLOGY: none sent COMPLICATIONS: None Patient was transported to: PACU Patient's condition: stable Implants: none Procedure Description: ESTIMATED BLOOD LOSS: Less than 5 mL. COMPLICATIONS: The patient tolerated the procedure well without complications. INDICATIONS: The patient is seen at the request of PCPfor symptomatic umbilical hernia and is here today for repair. Informed consent was obtained, explaining risks and benefits of the procedure including but not limited to bleeding, infection, pneumonia, blood clots, recurrence, chronic pain, and chronic numbness, reaction to mesh necessitating removal, complications of anesthesia and other unforetold complications. DESCRIPTION OF PROCEDURE: The patient was brought to the operating suite and placed in supine position. Anesthesia was administered per the Department of Anesthesia. Patient prepped and draped in the usual sterile fashion using DuraPrep scrub solution. IV antibiotics were administered. Pause for the cause was done. The incision was anesthetized with 20 cc of a 50-50 mix of quarter percent Marcaine and Exparel. .A 1-inch incision was made in the inferiorly to the umbilicus. Umbilicus was dissected off the fascia. The fascia was dissected off from surrounding tissue. There is very small omentum protruding. This was returned to the abdomen. It is not infarcted. The defect in less than .5 cm. It is not large enough to closed with A Ventrilux patch. It was oversewn with 0 Vicryl on a UR- 6. Deep tissue was approximated with 3-0 Vicryl and skin was approximated with 4-0 Monocryl in a running subcuticular fashion. Steritapes and sterile dressings are applied. The patient tolerated the procedure well without complications and was transferred to recovery room in stable condition.
[2023-10-02] VITALS (12 sets, daily range): BP systolic 92–123; BP diastolic 53–85; PULSE 61–77; RESP 14–22; TEMP 36.2–36.7; O2SAT 97–99; BMI 25.8
[2023-10-02] MEDS: Gabapentin 300 MG CAP 600 MG PO (08:37)
[2023-10-02] MEDS: Lactated Ringers 1,000 ML 80 ML IV (08:49)
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
[2023-10-02] MEDS: CLINDAMYCIN 600 MG/50 ML BAG 100 MG IVPB (10:25)
[2023-10-02] MEDS: Bupivacaine 0.25% Pres-Free 30 ML VIAL (10:41)
[2023-10-02] MEDS: Bupivacaine LIPOSOME/PF 133 MG/10 ML VIAL IJ (10:42)
[2023-10-02] MEDS: fentaNYL 100 MCG/2 ML VIAL IVP (11:32)
--- NOTE | 2023-10-02 11:49 | W.ANESPOSTOP ---
Postoperative Evaluation Date, Time and Location Date Performed: 10/02/23 Time Performed: 11:49 Patient Location: PACU Vital Signs Most Recent Imported Vital Signs: Most Recent Vital Signs Temp Pulse Resp BP Pulse Ox 36.7 C 67 14 114/65 98 10/02/23 11:42 10/02/23 11:42 10/02/23 11:42 10/02/23 11:42 10/02/23 11:42 Pain Score Most Recent Pain Score: Most Recent Pain Score Pain Level 4 10/02/23 11:42 Assessment Mental Status: Awake (Alert & Oriented to Patient Baseline) Airway and Respiratory Function: Patent airway with normal (patient baseline) respiratory exam Cardiovascular Function: Hemodynamically Stable Hydration Status: Adequately Hydrated Nausea & Vomiting: No Nausea or Vomiting Pain: Pain is tolerable per patient Peripheral Nerve Block: Patient did not receive a nerve block
[2023-10-02] MEDS: Droperidol 5 MG/2 ML VIAL 0.625 MG IVP (13:12)
[2023-10-02] MEDS: Milk of Magnesia 30 ML CUP PO (14:24)
== END 2023-10-02 14:27 | disposition home or self-care (01) ==
LOC: SUR 08:02
PROVIDERS: PCP Student in an Organized Health Care Education/Training Program; Visit Provider Surgery
PROC: (CPT 49591; principal; 2023-10-02 09:30)
DX: K42.9 Umbilical hernia without obstruction or gangrene (principal)
CPT/HCPCS: 49591; C9290; J0665; J0737; J1100; J1790; J1885; J2001; J2405; J2704; J3010

== ENCOUNTER → 2023-10-30 01:12 | Outpatient (CLI) | payer MEDICAID, SELFPAY ==
--- NOTE | 2023-10-30 09:15 | DI.US_ITS ---
Exam(s) US PELVIS TRANSVAGINAL EXAM: US PELVIS TRANSVAGINAL CLINICAL HISTORY: f/u pelvic pain, ovarian cyst,R10.2 TECHNIQUE: Ultrasound of the pelvis was performed both transabdominal and transvaginal. COMPARISON: CT CT ABDOMEN PELVIS W from 08/06/2023 US US PELVIS TRANSVAGINAL from 09/03/2023 FINDINGS: Uterus and left over again noted to be surgically absent. In the right ovary the previously present 5 cm cyst seen on the CT scan of 08/06/2023 is again no yuli kira seen. The right ovary measures 2.6 x 1.5 x 2.3 cm. The largest right ovarian follicle on today's study joshua sures 1.3 x 1.1 x 1.3 cm. IMPRESSION: 1. Uterus and left ovary are again noted be surgically absent. 2. Further decrease in size of right ovarian cysts. The largest on today's study measures 13 x 11 x 13 mm, well within normal limits size. 3. There are no extraovarian adnexal masses and no free fluid evident. DATA REPOSITORY:
== END ==
PROVIDERS: PCP Student in an Organized Health Care Education/Training Program; Visit Provider Obstetrics & Gynecology
DX: R10.2 Pelvic and perineal pain (principal)
CPT/HCPCS: 76830; 76856

== ENCOUNTER 2023-12-05 04:52 | Outpatient (CLI) | payer MEDICAID, SELFPAY ==
[2023-12-05 10:53] LABS: ALT 14 U/L (14-59); AST 13 U/L (15-37); Albumin 3.8 g/dL (3.4-5.0); Alkaline Phosphatase 58 U/L (46-116); BUN 10 mg/dL (7-18); Bilirubin, Total 0.5 mg/dL (0.2-1.0); CREATININE 0.7 mg/dL (0.55-1.02); Calcium 8.5 mg/dL (8.5-10.1); Calculated LDL 134 mg/dL (<100); Chloride 105 mmol/L (98-107); Cholesterol 216 mg/dL (<200); Estimated GFR 110.67 (mL/min/1.73m2); Glucose 99 mg/dL (74-106); HDL Cholesterol 68 mg/dL (40-60); Potassium 3.9 mmol/L (3.5-5.1); Sodium 140 mmol/L (136-145); Total Protein 7.2 g/dL (6.4-8.2); Triglyceride 72 mg/dL (<150); Vitamin D 25 Total 8.7 ng/mL (30-100)
== END 2023-12-05 04:53 | disposition home or self-care (01) ==
LOC: LBO 04:52
PROVIDERS: PCP Student in an Organized Health Care Education/Training Program; Referring Provider Student in an Organized Health Care Education/Training Program; Visit Provider Student in an Organized Health Care Education/Training Program
DX: Z13.220 Encounter for screening for lipoid disorders (principal); K21.9 Gastro-esophageal reflux disease without esophagitis
CPT/HCPCS: 36415; 80053; 80061; 82306

== ENCOUNTER → 2023-12-06 15:47 | Outpatient (CLI) | payer MEDICAID, SELFPAY ==
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
== END ==
PROVIDERS: PCP Student in an Organized Health Care Education/Training Program; Visit Provider Physician Assistant Surgical
DX: J45.909 Unspecified asthma, uncomplicated (principal)
CPT/HCPCS: 71046

== ENCOUNTER 2023-12-06 16:03 | Outpatient (CLI) | payer MEDICAID, SELFPAY ==
[2023-12-07 07:50] LABS: IgE 5 IU/mL (<158)
== END 2023-12-06 16:04 | disposition home or self-care (01) ==
LOC: LBO 16:04
PROVIDERS: Physician Assistant Surgical; PCP Student in an Organized Health Care Education/Training Program; Visit Provider Student in an Organized Health Care Education/Training Program
DX: J45.909 Unspecified asthma, uncomplicated (principal)
CPT/HCPCS: 36415; 82785

== ENCOUNTER → 2023-12-12 10:59 | Outpatient (CLI) | payer MEDICAID, SELFPAY ==
--- NOTE | 2023-12-12 10:45 | DI.US_ITS ---
Exam(s) US SOFT TISSUE EXTREMITY EXAM: US SOFT TISSUE EXTREMITY CLINICAL HISTORY: eval for tissue swelling, hematoma R22.9 LEFT LOWER LEG/ANKLE. TECHNIQUE: Ultrasound was performed using standard protocol. COMPARISON: No exams were available for comparison FINDINGS: Sonographic assessment utilizing grayscale and color Doppler imaging was performed and targeted to th e area of clinical concern. No hematoma, significant edema or mass is identified. IMPRESSION: Negative ultrasound of the lower leg DATA REPOSITORY:
== END ==
PROVIDERS: PCP Student in an Organized Health Care Education/Training Program; Visit Provider Student in an Organized Health Care Education/Training Program
DX: R22.42 Localized swelling, mass and lump, left lower limb (principal)
CPT/HCPCS: 76881

== ENCOUNTER 2023-12-31 15:05 | Outpatient (REF) | payer MEDICAID, SELFPAY ==
--- NOTE | 2023-12-31 15:00 | SKI_PTH ---
PATIENT: Rene Laura LOC: [facility] U#:[id number] AGE/SX: 43/F ROOM: RE12/31/[address]: Ivy Sultana : 1980 BED: DIS: 12/31/2023 SPEC #: [id number] RECD: 12/31/23 17:20 STATUS: ALEKSANDR RELizbeth #: [id number] CASSANDRA: 12/31/23 15:[address]: Ivy Sultana DEPT: Surgical Specimen RECD BY: Lorraine Estrella ENTERED: 12/31/23 17:22 SP TYPE: THANG VILLASENOR DR: Lisa Khan DO Tissues: 1 - SKIN BIOPSY(SHAVE/PUNCH) Procedures: SKIN LEVEL 4 Comments: [id number]
== END 2023-12-31 15:06 | disposition home or self-care (01) ==
LOC: LBN 15:05
PROVIDERS: PCP Student in an Organized Health Care Education/Training Program; Visit Provider Surgery
DX: C44.319 Basal cell carcinoma of skin of other parts of face (principal); D22.9 Melanocytic nevi, unspecified; L91.8 Other hypertrophic disorders of the skin
CPT/HCPCS: 88305

== ENCOUNTER 2024-03-03 15:21 | Emergency (ER) | payer MEDICAID, SELFPAY ==
[2024-03-03] VITALS (12 sets, daily range): BP systolic 104–132; BP diastolic 65–77; PULSE 67–77; RESP 10; TEMP 36.8; O2SAT 93–97
[2024-03-03] MEDS: Pantoprazole 40 MG VIAL 80 MG IVP (16:27)
[2024-03-03 16:35] LABS: Abs Immature Grans 0.01 10^3/uL (0.0-0.06); Absolute Basophil Count 0.03 10^3/uL (0.0-0.2); Absolute Eosinophil Count 0.06 10^3/uL (0.0-0.7); Absolute Lymphocyte Count 1.67 10^3/uL (1.2-3.4); Absolute Monocyte Count 0.34 10^3/uL (0.1-0.8); Absolute Neutrophil Count 3.16 10^3/uL (1.2-6.7); Basophils % 0.6 %; Eosinophils % 1.1 %; HCT 42.7 % (36.0-46.0); Immature Grans % 0.2 %; Lymphocytes % 31.7 %; MCH 30.6 pg (27.0-33.0); MCHC 32.8 % (32.0-36.0); MCV 93 fL (80-95); MPV 9.7 fL (8.0-11.0); Monocytes % 6.5 %; Neutrophils % 59.9 %; Platelet Count 362 10^3/uL (130-400); RBC 4.57 10^6/uL (3.93-5.22); RDW-SD 41.7 fL; WBC 5.27 10^3/uL (4.4-10.8)
[2024-03-03 16:54] LABS: ALT 15 U/L (14-59); AST 16 U/L (15-37); Albumin 4.1 g/dL (3.4-5.0); Alkaline Phosphatase 61 U/L (46-116); Anion Gap 5.1 mmol/L (3-11); BUN 5 mg/dL (7-18); Bilirubin, Total 0.67 mg/dL (0.2-1.0); CO2 28.9 mmol/L (21.0-32.0); CREATININE 0.7 mg/dL (0.55-1.02); Calcium 9.3 mg/dL (8.5-10.1); Chloride 104 mmol/L (98-107); Estimated GFR 110.67 (mL/min/1.73m2); Glucose 89 mg/dL (74-106); Lipase 26 U/L (16-77); Potassium 3.7 mmol/L (3.5-5.1); Sodium 138 mmol/L (136-145); Total Protein 7.9 g/dL (6.4-8.2)
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
== END 2024-03-03 17:26 | disposition home or self-care (01) ==
PROVIDERS: Emergency Provider Emergency Medicine; PCP Student in an Organized Health Care Education/Training Program
DX: R11.10 Vomiting, unspecified (principal); M54.50 Low back pain, unspecified; K52.9 Noninfective gastroenteritis and colitis, unspecified
CPT/HCPCS: 80053; 83690; 86850; 86900; 86901; 96374; 99285; 85025; 99283; J2470

== ENCOUNTER 2024-03-04 15:18 | Emergency (ER) | payer MEDICAID, SELFPAY ==
[2024-03-04 15:22] VITALS: BP 98/63; PULSE 90; RESP 18; TEMP 36.8; O2SAT 97
--- NOTE | 2024-03-04 15:30 | DI.CT_ITS ---
Exam(s) CT ABDOMEN PELVIS W EXAM: CT ABDOMEN PELVIS W CLINICAL HISTORY: nausea vomiting diarrhea. TECHNIQUE: Imaging Protocol: Axial computed tomography images with coronal and sagittal reformatted images were created and reviewed CONTRAST MATERIAL: Intravenous: Omnipaque 350 Contrast volume:90 ml Oral: no COMPARISON: CT CT ABDOMEN PELVIS W from 08/06/2023 US US PELVIS TRANSVAGINAL from 09/03/2023 FINDINGS: ABDOMEN and PELVIS: Lung Bases: No acute findings. Liver: Normal density. No suspicious mass. Gallbladder and biliary tract: Status post cholecystectomy. No biliary dilation. Pancreas: Normal density. No abnormal calcifications or inflammatory process. No evidence of mass. Spleen: Normal. Kidneys: Normal size, contour and axis. No radiodense stones. No obstructive uropathy. Stable small bilateral renal cysts. No suspicious masses seen. Adrenal glands: No masses seen. Vasculature: Abdominal aorta non-dilated. Soft tissues: Unremarkable. Bladder: No gross wall thickening. No calculi.No focal mass. Bowel: No obstruction. No bowel wall thickening. Appendix normal. Colon mainly collapsed. No sign ificant fluid. Peritoneal cavity: No ascites. No focal collection. No mesenteric inflammatory response. Bones: Unremarkable for age. Reproductive organs: Status post hysterectomy. Lymph nodes: No pathologically enlarged lymph nodes. IMPRESSION:: No acute abnormality in the abdomen or pelvis. RADIATION DOSE DELIVERED: Total DLP DATA REPOSITORY: All CT scans at this facility are submitted to the National Radiology Data Registry (NRDR) Dose Index Registry (DIR) with the [employer] ([employer]). RADIATION OPTIMIZATION: All CT scans at this facility use at least one of these dose optimization te chniques: automated exposure control; mA and/or kV adjustment per patient size (includes targeted exa ms where dose is matched to clinical indication); or iterative reconstruction.
[2024-03-04] MEDS: Normal Saline 1,000 ML 1000 ML IV (15:40)
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
[2024-03-04 15:59] LABS: Abs Immature Grans 0.03 10^3/uL (0.0-0.06); Absolute Basophil Count 0.03 10^3/uL (0.0-0.2); Absolute Eosinophil Count 0.08 10^3/uL (0.0-0.7); Absolute Lymphocyte Count 1.67 10^3/uL (1.2-3.4); Absolute Monocyte Count 0.33 10^3/uL (0.1-0.8); Absolute Neutrophil Count 3.78 10^3/uL (1.2-6.7); Basophils % 0.5 %; Eosinophils % 1.4 %; HCT 39.3 % (36.0-46.0); HGB 12.8 g/dL (11.2-15.7); Immature Grans % 0.5 %; Lymphocytes % 28.2 %; MCH 30.5 pg (27.0-33.0); MCHC 32.6 % (32.0-36.0); MCV 94 fL (80-95); MPV 9.7 fL (8.0-11.0); Monocytes % 5.6 %; Neutrophils % 63.8 %; Platelet Count 323 10^3/uL (130-400); RBC 4.19 10^6/uL (3.93-5.22); RDW 12.1 % (11.7-14.6); RDW-SD 42.2 fL; WBC 5.92 10^3/uL (4.4-10.8)
[2024-03-04 16:11] LABS: ALT 13 U/L (14-59); AST 13 U/L (15-37); Albumin 3.7 g/dL (3.4-5.0); Alkaline Phosphatase 57 U/L (46-116); Anion Gap 7.2 mmol/L (3-11); BUN 6 mg/dL (7-18); Bilirubin, Total 0.57 mg/dL (0.2-1.0); CO2 25.8 mmol/L (21.0-32.0); CREATININE 0.8 mg/dL (0.55-1.02); Chloride 105 mmol/L (98-107); Estimated GFR 94.28 (mL/min/1.73m2); Glucose 108 mg/dL (74-106); Lipase 24 U/L (16-77); Potassium 3.7 mmol/L (3.5-5.1); Sodium 138 mmol/L (136-145)
[2024-03-04 16:21] LABS: Calcium 8.8 mg/dL (8.5-10.1)
[2024-03-04] MEDS: Ondansetron 4 MG/2 ML VIAL IVP (16:41)
[2024-03-04] MEDS: Omnipaque 350 MG/ML 100 ML BTL IJ (16:49)
[2024-03-04] MEDS: Normal Saline - Diluent 50 ML VIAL IJ (16:51)
[2024-03-04 18:22] LABS: Bilirubin Negative (Negative); Blood Small (Negative); Clarity Clear (Clear); Glucose Negative (Negative); Ketones Trace mg/dL (Negative); Leukocyte Esterase Negative (Negative); Nitrite Negative (Negative); Urobilinogen 0.2 mg/dL (Up to 0.2)
[2024-03-04 18:31] LABS: Bacteria Rare HPF (Negative); C & S Indicated? No; Casts Negative LPF (Negative); Crystals Negative HPF (Negative); Epithelial Cells Rare HPF (Negative); Mucus Negative (Negative); WBC 0-2 HPF (0-5)
[2024-03-04 19:10] LABS: COVID-19 PCR Negative (Negative); Influenza A PCR Negative (Negative); Influenza B PCR Negative (Negative); RSV PCR Negative (Negative)
[2024-03-04 19:18] LABS: Source NASOPHARYNX
[2024-03-04 19:52] VITALS: BP 108/64; PULSE 78; RESP 20; TEMP 36.8; O2SAT 93
[2024-03-04 20:50] LABS: C Diff PCR Negative (Negative)
[2024-03-06 00:15] LABS: Campylobacter PCR Negative (Negative); Salmonella PCR Negative (Negative); Shiga Toxin PCR Negative (Negative); Shigella/Enteroinvasive Ecoli Negative (Negative)
== END 2024-03-04 20:04 | disposition home or self-care (01) ==
PROVIDERS: Emergency Provider Emergency Medicine; PCP Student in an Organized Health Care Education/Training Program
DX: R11.2 Nausea with vomiting, unspecified (principal); R19.7 Diarrhea, unspecified
CPT/HCPCS: 80053; 83690; 87493; 87505; 87637; 96361; 96374; 99285; 74177; 81003; 81015; 85025; 87177; 99283; J2405; J3490

== ENCOUNTER 2024-04-24 02:14 | Outpatient (CLI) | payer MEDICAID, SELFPAY ==
--- NOTE | 2024-04-24 13:27 | DI.MAMMO_ITS ---
Exam(s) US BREAST LT COMPLETE US BREAST RT COMPLETE MG MAMMO DIAGNOSTIC BI EXAM: MG MAMMO DIAGNOSTIC BI and U/S breast bilateral complete CLINICAL HISTORY: nipple discharge,n64.52. TECHNIQUE: Craniocaudal and mediolateral oblique Full Field Digital Mammography views with Computer Aided Diagnosis followed by Tomosynthesis and bilateral breast ultrasound. All 4 quadrants were eval uated sonographically in addition to the axilla and retroareolar region of both breasts. COMPARISON: This is a baseline examination. FINDINGS: Mammography/Tomosynthesis: Masses/Architectural Distortion: There is a partially obscured nodule in the medial aspect of the lef t breast 4 cm from the nipple and measuring 7 mm. It does not persist on the additional views. No a reas of architectural distortion are seen. Microcalcifictions: No suspicious pleomorphic-type are seen. Skin Thickening/Nipple Retraction: None. Complete bilateral breast US: Echotexture: Normal appearance of the glandular tissue. Shadowing: No suspicious foci. Cyst: At the 2 o'clock position of the left breast 4 cm from the nipple there is a 0.8 x 0.3 x 0.7 cm septated cyst. No suspicious cystic or solid lesions are seen in the medial breast to correspond to the mammographic abnormality. Solid lesions: None seen. Ductal dilation: None. IMPRESSION: 1. No evidence of malignancy is noted. 2. Unless there is more urgent need, follow-up screening mammography is recommended, as per [employer] [employer] guidelines. 3. The findings were discussed with the patient on the date of the examination. BI-RADS Category 2 - Benign Findings Breast Density - Category C - Heterogeneously dense Breast density Category C or D implies that the patient has dense breast tissue. Dense breast tissue can make it harder to find cancer on a mammogram. Dense breast tissue is also associated with an incr eased risk of breast cancer. This information about the result of the mammogram report was provided to the patient to raise their awareness. Use this report when you speak with the patient about their risks for breast cancer, which includes their family history. At that time, you may recommend additional screening tests (Ultrasoun d or MRI) as these tests may add significant information. A negative radiographic report should not delay biopsy if a dominant or clinically suspicious mass is present. Up to ten percent of cancers are not identified on mammography. A negative report may reinforce clinical impression. Adenosis and dense breasts may obscure an underlying neoplasm. False positive reports average 6 to 10%. Patient will receive a letter notifying them of these results.
== END 2024-04-24 02:34 ==
LOC: DI 02:14
PROVIDERS: PCP Student in an Organized Health Care Education/Training Program; Visit Provider Nurse Practitioner Family
DX: N64.52 Nipple discharge (principal); Z12.31 Encounter for screening mammogram for malignant neoplasm of breast; N60.01 Solitary cyst of right breast; N60.02 Solitary cyst of left breast
CPT/HCPCS: 76642; 77062; 77066; G0279

== ENCOUNTER 2024-04-24 03:36 | Outpatient (CLI) | payer MEDICAID, SELFPAY ==
[2024-04-24 15:47] LABS: Anion Gap 8.8 mmol/L (3-11); BUN 8 mg/dL (7-18); CO2 27.2 mmol/L (21.0-32.0); CREATININE 0.7 mg/dL (0.55-1.02); Chloride 106 mmol/L (98-107); Estimated GFR 110.67 (mL/min/1.73m2); Glucose 94 mg/dL (74-106); Sodium 142 mmol/L (136-145); TSH (W/Ref FT4) 1.82 uIU/mL (0.36-3.74)
[2024-04-24 22:19] LABS: Prolactin 9.4 ng/mL (See Note)
== END 2024-04-24 03:37 | disposition home or self-care (01) ==
LOC: LBO 03:37
PROVIDERS: Nurse Practitioner Family; PCP Student in an Organized Health Care Education/Training Program; Referring Provider Student in an Organized Health Care Education/Training Program; Visit Provider Student in an Organized Health Care Education/Training Program
DX: N64.52 Nipple discharge (principal); Z23 Encounter for immunization
CPT/HCPCS: 36415; 80048; 84146; 84443

== ENCOUNTER 2024-05-02 02:09 | Outpatient (CLI) | payer MEDICAID, SELFPAY ==
[2024-05-02] MEDS: Inhaler, Assist Device 1 EACH MC (17:06)
[2024-05-02] MEDS: Methacholine 100 MG VIAL IH (17:07)
[2024-05-02] MEDS: Albuterol HFA 18 GM 200 PUFF INH IH (17:07)
--- NOTE | 2024-05-07 12:00 | W.PFT ---
Date of service: 05/02/24 Time of Service: 14:55 Pulmonary Function Test Result Indications: Asthma Interpretation Spirometry: There is no baseline airflow limitation. There was a 16% decrease in FEV1 with administration of 16mg/dL methacholine. There is inspiratory blunting after administration of methacholine. Lung Volumes: Normal lung volumes Diffusion Capacity: Unable to perform Airway Pressure: Normal airways resistance Impression Negative methacholine but with inspiratory blunting after administration of methacholine. This could represent vocal cord dysfunction. Clinical Correlation therefore is recommended.
== END 2024-05-02 02:10 | disposition home or self-care (01) ==
LOC: RT 02:09
PROVIDERS: PCP Student in an Organized Health Care Education/Training Program; Visit Provider Physician Assistant Surgical
DX: J45.998 Other asthma (principal)
CPT/HCPCS: 94060; 94070; 94726; 94010; J7674

== ENCOUNTER 2024-09-27 13:44 | Emergency (ER) | payer MEDICAID, SELFPAY ==
[2024-09-27 13:47] VITALS: BP 112/66; PULSE 75; RESP 18; TEMP 37; O2SAT 100
--- NOTE | 2024-09-27 14:00 | DI.CT_ITS ---
Exam(s) CT ABDOMEN PELVIS CTA EXAM: CT ABDOMEN PELVIS CTA CLINICAL HISTORY: LLQ abd pain, hx of aneurysm. Mesenteric ischemia. TECHNIQUE: Imaging Protocol: Axial CT angiography was performed with multi-slice acquisition and m ulti-planar and/or 3D reconstructions. CONTRAST MATERIAL: Intravenous: Omnipaque 350 Contrast volume:structured data in ml Oral: / no COMPARISON: CT CT ABDOMEN PELVIS W from 03/04/2024 FINDINGS: Vascular Structures: No aneurysm, atherosclerotic changes or vascular irregularity is seen. Celiac [place]:No evidence of stenosis. SMA: No evidence of stenosis. Renal Arteries: No evidence of stenosis. There is a single renal artery perfusing each kidney. Aorta: No aneurysm. No dissection. No significant stenosis. Iliac Arteries: No evidence of stenosis. Common Femoral Arteries: No evidence of stenosis. Soft Tissues:Unremarkable. Lung bases:No acute findings. Liver: Normal size. Normal density. No measurable mass. Gallbladder and biliary tract: Cholecystectomy. No biliary dilation. Pancreas: Normal density, no abnormal calcifications or inflammatory process. Spleen: Normal. Kidneys: Normal size, contour and axis. Stable appearance of prominence of the renal pelves. No susp icious masses seen. No evidence of calculi. Adrenal glands: No masses seen. Bladder: No gross wall thickening. No evidence of calculi. No evidence of mass. Bowel: No obstruction or bowel wall thickening. Appendix normal. Peritoneal cavity: No ascites. No focal collection. No mesenteric inflammatory response. Bones: No acute findings. Lymph nodes: Within normal limits. Reproductive: Hysterectomy. IMPRESSION: Normal CT Angiogram of the Abdomen. No evidence of aneurysm or stenosis. No evidence of bowel ischemia. RADIATION DOSE DELIVERED: Total DLP DATA REPOSITORY: All CT scans at this facility are submitted to the National Radiology Data Registry (NRDR) Dose Index Registry (DIR) with the [employer] (ACR). RADIATION OPTIMIZATION: All CT scans at this facility use at least one of these dose optimization te chniques: automated exposure control; mA and/or kV adjustment per patient size (includes targeted exa ms where dose is matched to clinical indication); or iterative reconstruction.
[2024-09-27 14:01] VITALS: BP 112/66; PULSE 75; RESP 18; TEMP 37; O2SAT 100
[2024-09-27 14:15] LABS: Lactate 0.8 mmol/L (<or=2.0)
[2024-09-27 14:17] LABS: Abs Immature Grans 0.01 10^3/uL (0.0-0.06); Absolute Basophil Count 0.03 10^3/uL (0.0-0.2); Absolute Monocyte Count 0.41 10^3/uL (0.1-0.8); Absolute Neutrophil Count 3.05 10^3/uL (1.2-6.7); Basophils % 0.5 %; Eosinophils % 1.8 %; HCT 42.5 % (36.0-46.0); HGB 13.9 g/dL (11.2-15.7); Immature Grans % 0.2 %; Lymphocytes % 34.5 %; MCH 30.5 pg (27.0-33.0); MCHC 32.7 % (32.0-36.0); MCV 93 fL (80-95); MPV 9.6 fL (8.0-11.0); Monocytes % 7.5 %; Neutrophils % 55.5 %; Platelet Count 371 10^3/uL (130-400); RBC 4.55 10^6/uL (3.93-5.22); RDW 11.9 % (11.7-14.6); RDW-SD 41.2 fL
[2024-09-27 14:19] LABS: Bilirubin Negative (Negative); Blood Small (Negative); Clarity Sl Cloudy (Clear); Glucose Negative (Negative); Ketones Negative (Negative); Leukocyte Esterase Trace (Negative); Nitrite Negative (Negative); Urobilinogen 0.2 mg/dL (Up to 0.2)
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
[2024-09-27] MEDS: Normal Saline 1,000 ML 1000 ML IV (14:22)
[2024-09-27] MEDS: MORPHine 4 MG/ML SYR IVP ×2 (14:22→15:35)
[2024-09-27 14:29] LABS: Bacteria Moderate HPF (Negative); C & S Indicated? No; Casts Negative LPF (Negative); Crystals Negative HPF (Negative); Epithelial Cells Rare HPF (Negative); Mucus Negative (Negative); RBC 0-2 HPF (0-2); WBC 0-2 HPF (0-5)
[2024-09-27 14:32] LABS: ALT 20 U/L (14-59); AST 18 U/L (15-37); Albumin 4.1 g/dL (3.4-5.0); Alkaline Phosphatase 71 U/L (46-116); Anion Gap 10.7 mmol/L (3-11); BUN 9 mg/dL (7-18); Bilirubin, Total 0.7 mg/dL (0.2-1.0); CO2 27.3 mmol/L (21.0-32.0); CREATININE 0.7 mg/dL (0.55-1.02); Calcium 8.8 mg/dL (8.5-10.1); Chloride 105 mmol/L (98-107); Estimated GFR 110.67 (mL/min/1.73m2); Glucose 96 mg/dL (74-106); Potassium 3.6 mmol/L (3.5-5.1); Sodium 143 mmol/L (136-145); Total Protein 7.7 g/dL (6.4-8.2)
[2024-09-27 14:38] LABS: PTT Activated 27.5 sec (20.6-30.2); Prothrombin Time 10.1 sec (9.1-11.1)
[2024-09-27] MEDS: Normal Saline - Diluent 50 ML VIAL IJ (14:41)
[2024-09-27] MEDS: Omnipaque 350 MG/ML 100 ML BTL IJ (14:41)
--- NOTE | 2024-09-27 15:01 | DI.VRAD_ITS ---
PROCEDURE INFORMATION: Exam: CTA Abdomen and Pelvis With Contrast Exam date and time: 09/27/2024 2:33 PM Age: 43 years old Clinical indication: Other: Llq abd pain, HX of aneurysm. Mesenteric isch TECHNIQUE: Imaging protocol: Computed tomographic angiography of the abdomen and pelvis with contrast. Exam focused on the arteries. 3D rendering (Not supervised by radiologist): MIP and/or 3D reconstructed images were created by the technologist. Contrast material: OMNIPAQUE 350; Contrast volume: 100 ml; Contrast route: INTRAVENOUS (IV); COMPARISON: CT ABDOMEN PELVIS W 03/04/2024 4:48 PM FINDINGS: Aorta: No aortic aneurysm. No aortic dissection. Celiac trunk and mesenteric arteries: No occlusion or significant stenosis. Renal arteries: No occlusion or significant stenosis. Right iliac arteries: No occlusion or significant stenosis. Left iliac arteries: No occlusion or significant stenosis. Liver: No mass. Gallbladder and biliary ducts: Cholecystectomy. No biliary ductal dilatation. Pancreas: Unremarkable. No mass. No ductal dilation. Spleen: Unremarkable. No splenomegaly. Adrenal glands: Unremarkable. No mass. Kidneys and ureters: Unremarkable. No solid mass. No hydronephrosis. Stomach and bowel: Unremarkable. No obstruction. No mucosal thickening. Appendix: No evidence of appendicitis. Intraperitoneal space: Unremarkable. No free air. No significant fluid collection. Lymph nodes: Unremarkable. No enlarged lymph nodes. Urinary bladder: Unremarkable. No mass. Reproductive: Uterus is absent. No adnexal cyst or mass. Bones/joints: No acute fracture. Soft tissues: Unremarkable. IMPRESSION: No vascular abnormality. No acute abnormality in the abdomen or pelvis. Dictated and Authenticated by: Britton Luna MD. Orderin Scout Gibbs MD
[2024-09-27 15:29] VITALS: BP 107/57; PULSE 78; RESP 18; O2SAT 100
[2024-09-27] MEDS: Fosfomycin Tromethamine 3 GM PACKET PO (15:35)
== END 2024-09-27 15:38 | disposition home or self-care (01) ==
PROVIDERS: Emergency Provider Student in an Organized Health Care Education/Training Program; PCP Student in an Organized Health Care Education/Training Program
DX: R10.32 Left lower quadrant pain (principal)
CPT/HCPCS: 36415; 80053; 81025; 96361; 96374; 96375; 99285; 74174; 81003; 81015; 83605; 85025; 85610; 85730; 99283; J2270; J3490

== ENCOUNTER 2024-09-28 12:57 | Emergency (ER) | payer MEDICAID, SELFPAY ==
[2024-09-28 13:03] VITALS: BP 131/59; PULSE 83; RESP 20; TEMP 36.3; O2SAT 100
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
[2024-09-28] MEDS: Ketorolac 15 MG/ML VIAL IVP (13:34)
[2024-09-28] MEDS: Normal Saline 1,000 ML 1000 ML IV (13:34)
[2024-09-28 13:35] LABS: Absolute Basophil Count 0.04 10^3/uL (0.0-0.2); Absolute Eosinophil Count 0.09 10^3/uL (0.0-0.7); Absolute Lymphocyte Count 1.79 10^3/uL (1.2-3.4); Absolute Monocyte Count 0.33 10^3/uL (0.1-0.8); Absolute Neutrophil Count 1.82 10^3/uL (1.2-6.7); Eosinophils % 2.2 %; HCT 40.9 % (36.0-46.0); HGB 13.5 g/dL (11.2-15.7); MCH 30.7 pg (27.0-33.0); MCV 93 fL (80-95); MPV 9.4 fL (8.0-11.0); Monocytes % 8.1 %; Neutrophils % 44.7 %; Platelet Count 335 10^3/uL (130-400); RDW 11.9 % (11.7-14.6); RDW-SD 40.9 fL; WBC 4.07 10^3/uL (4.4-10.8)
[2024-09-28 13:46] LABS: Bilirubin Negative (Negative); Blood Small (Negative); Clarity Clear (Clear); Glucose Negative (Negative); Ketones Negative (Negative); Leukocyte Esterase Negative (Negative); Nitrite Negative (Negative); pH 6.5 (5-8)
[2024-09-28 13:54] LABS: Bacteria Rare HPF (Negative); Epithelial Cells Few HPF (Negative); WBC 0-2 HPF (0-5)
[2024-09-28 13:55] LABS: C & S Indicated? No; Casts Negative LPF (Negative); Crystals Negative HPF (Negative); Mucus Negative (Negative)
[2024-09-28 13:58] LABS: ALT 18 U/L (14-59); AST 19 U/L (15-37); Alkaline Phosphatase 67 U/L (46-116); Anion Gap 10.2 mmol/L (3-11); BUN 7 mg/dL (7-18); Bilirubin, Total 0.8 mg/dL (0.2-1.0); CO2 27.8 mmol/L (21.0-32.0); CREATININE 0.7 mg/dL (0.55-1.02); Calcium 8.6 mg/dL (8.5-10.1); Chloride 104 mmol/L (98-107); Estimated GFR 110.67 (mL/min/1.73m2); Glucose 87 mg/dL (74-106); Lipase 25 U/L (<78); Magnesium 2.7 mg/dL (1.8-2.4); Potassium 3.2 mmol/L (3.5-5.1); Sodium 142 mmol/L (136-145); Total Protein 7.5 g/dL (6.4-8.2)
[2024-09-28 14:32] VITALS: BP 101/74; PULSE 70; RESP 18; TEMP 36.7; O2SAT 100
[2024-09-28] MEDS: metroNIDAZOLE 500 MG TAB, 3 TABS/BTL PO (15:16)
[2024-09-28] MEDS: metroNIDAZOLE 500 MG TAB PO (15:16)
== END 2024-09-28 15:23 | disposition home or self-care (01) ==
PROVIDERS: Emergency Provider Emergency Medicine; PCP Student in an Organized Health Care Education/Training Program
DX: R10.31 Right lower quadrant pain (principal); N76.0 Acute vaginitis; B96.89 Other specified bacterial agents as the cause of diseases classified elsewhere; F17.290 Nicotine dependence, other tobacco product, uncomplicated; Z90.710 Acquired absence of both cervix and uterus; Z90.49 Acquired absence of other specified parts of digestive tract
CPT/HCPCS: 36415; 80053; 83690; 96361; 96374; 99284; 81003; 81015; 83735; 85025; 87480; 87510; 87660; J1885

== ENCOUNTER 2025-03-23 07:59 | Day surgery (SDC) | payer MEDICAID, SELFPAY ==
[2025-03-23 08:26] VITALS: BP 117/76; PULSE 78; RESP 16; TEMP 36.2; O2SAT 98
[2025-03-23] MEDS: Lactated Ringers 1,000 ML 80 ML IV (08:41)
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
[2025-03-23 08:43] VITALS: BMI 28.3
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
--- NOTE | 2025-03-23 10:19 | BOWEL_PTH ---
PATIENT: Rene Laura LOC: [facility] U#:[id number] AGE/SX: 44/F ROOM: RE03/23/[address]: Lexi Bravo MD : [id number] BED: DIS: 03/23/2025 SPEC #: [id number] RECD: 03/23/25 12:33 STATUS: ALEKSANDR RELizbeth #: [id number] CASSANDRA: 03/23/25 10:[address]: Lexi Bravo DEPT: Surgical Specimen RECD BY: Lorraine Estrella ENTERED: 03/23/25 12:35 SP TYPE: Bowel OTHR DR: Lisa Khna DO Tissues: 1 - BIOPSY BOWEL 2 - STOMACH BIOPSY 3 - BIOPSY BOWEL 4 - BIOPSY BOWEL 5 - BIOPSY BOWEL 6 - BIOPSY BOWEL 7 - BIOPSY BOWEL Procedures: GROSS AND MICRO LEVEL 4 Comments: [id number]
--- NOTE | 2025-03-23 10:23 | ENDO_ITS ---
Date of service: 02/12/25 Time of Service: 10:23 Endoscopy Report DATE OF PROCEDURE: 02/12/25 PRE-OP DIAGNOSIS: Chronic gerd, chronic diarrhea POST-OP DIAGNOSIS: same (hiatal hernia without esophagitis) PROCEDURE: EGD with biopsy SURGEON: Lexi Bravo ANESTHESIA TYPE: General:No Airway ESTIMATED BLOOD LOSS: 2 PATHOLOGY: other (1. duodenum biopsy. 2. antrum biopsy) COMPLICATIONS: None DISPOSITION: same day INDICATIONS: Evaluation of upper digestive system for epigastric pain source/cause PROCEDURE DESCRIPTION: Lubricated endoscope was passed through a bite block into the second portion of the duodenum. The endoscope was withdrawn and the duodenum stomach and esophageal mucosa examined. The duodenum appeared normal. There is no inflammation or ulceration or ero julia. The antrum appears normal. The fundus appears normal. The cardia appears normal. The endoscope was retroflexed and there is small hiatal hernia. GE junction is at 35cm from the incisors. The distal esophagus is normal without ulceration, varices or candidiasis. The Z-line is regular and there is no evidence of Still's esophagus. Remainder of the esophagus appears normal Cold forceps biopsies obtained from the duodenum the antrum for microscopic evaluation for celiac sprue and H. pylori. The upper digestive system was desufflated and the endoscope withdrawn. No complications. Assessment and plan: Hiatal hernia without esophagitis GERD Chronic diarrhea GERD likely secondary to hiatal hernia, no evidence of esophagitis on exam. No complications from GERD. May continue to use PPI periodically as needed. Will follow up biopsies and treat H pylori if needed. Enteropathy evaluation for chronic diarrhea, follw up in office.
--- NOTE | 2025-03-23 10:42 | W.COLOREPORT ---
Date of service: 03/23/25 Time of Service: 10:42 Colonoscopy Report Pre-op diagnosis general: Diarrhea of unknown origin, rectal bleeding, mother with colon cancer Post-op diagnosis procedure note: same (internal hemorrhoids) Procedure: Colonoscopy with biopsy Surgeon: Lexi Bravo Anesthesia Type: General:No Airway Estimated blood loss (mL): 2 Pathology: other (1. Terminal ileum biopsy. 2. ascending colon biopsy. 3. transverse colon biopsy. 4. descending colon biopsy. 5. Rectum biopsy) Complications: None Prep: Miralax/Dulcolax (excellent) Procedure Description: Informed consent was obtained and the patient was taken to the procedure area. The patient was placed in left lateral decubitus position on the procedure table. Timeout was performed. Anesthesia was induced. A lubricated colonoscope was inserted through the anus and passed to the cecum. The cecum was identified by the ileocecal valve and the appendiceal orifice. The scope was then slowly withdrawn and the colonic and rectal mucosa examined. TI intubated and examined. It appears normal. There are no colon or rectal mass lesions, polyps, AVMs. There is no inflammatory change. No diverticulosis was seen. The scope was retroflexed in the anorectal junction examined. Uncomplicated internal hemorrhoids present. No bleeding. Cold forceps biopsies obtained for evaluation for microscopic colitis. Biopsies obtained from terminal ileum, ascending colon, transverse colon, descending colon and rectum. Assessment and plan: chronic diarrhea rectal bleeding internal hemorrhoids without complication Normal colonoscopy. Rectal bleeding from hemorrhoids when it occurs. No mass lesion, no sign of inflammatory bowel disease. Biopsies taken to rule out microscopic colitis, but my suspicion is low at this time. I suspect she has bile salt induced diarrhea and will start her on colestipol. return to office in 2-4 weeks to review symptoms and plan of care. Next colonoscopy will be due in 5 years as a screening exam due to family history.
--- NOTE | 2025-03-23 10:46 | W.PM.DSUDISC ---
Date of service: 03/23/25 Discharge Plan Disposition Patient Disposition: Home Condition: Stable Discharge Details Reason For Visit: egd and colonoscopy - elective evaluation Attending Provider: Lexi Bravo Primary Care Provider: Lisa Khan Home Meds and New Rx's Prescriptions: Continued cholecalciferol (vitamin D3) 1,250 mcg (50,000 unit) capsule 1,250 mcg PO QWEEK Qty: 10 0RF Rx Instructions: Take on Sundays, @ bedtime.. re-check ~ Mar 02 fluticasone propion-salmeterol [Advair HFA] 115-21 mcg/actuation HFA aerosol inhaler 2 puff inhalation BID omeprazole 40 mg capsule,delayed release(DR/EC) 40 mg PO DAILY Qty: 30 1RF albuterol sulfate [ProAir HFA] 90 mcg/actuation HFA aerosol inhaler 2 puff inhalation Q6H PRN (Reason: shortness of breath or wheezing) Qty: 8.5 2RF scopolamine base [Transderm-Scop] 1 mg over 3 days patch 3 day 1 patch transdermal Q3D PRN (Reason: nausea and vomiting) Qty: 4 0RF loperamide 2 mg capsule 2 mg PO Q6H PRN (Reason: loose stool) Qty: 7 0RF Discontinued bisacodyl [Dulcolax (bisacodyl)] 5 mg tablet,delayed release (DR/EC) 5 mg PO ONCE Qty: 4 0RF Rx Instructions: take per colonoscopy instructions polyethylene glycol 3350 17 gram/dose powder 238 g PO ONCE Qty: 238 0RF Rx Instructions: take per colonoscopy instructions Discharge Instructions Additional Instructions: Normal colonoscopy and overall normal EGD today. Reflux is because of a very small hiatal hernia that you have. These hernias are not repaired when we can control the reflux with mecication. Surgery is major and results do not last forever so I do not recommend it for you as treatment of your reflux. I recommend continuing to manage your reflux with medications from your PCP. Colonoscopy was nice and normal. Rectal bleeding is from hemorrhoids when it occurs. No mass/cancer lesion, no sign of inflammatory bowel disease. Biopsies taken to rule out microscopic colitis, but my suspicion is low at this time. I suspect you have bile salt induced diarrhea from your gallbladder surgery, and will start you on colestipol, a medication to slow that down. prescription sent. return to office in 2-4 weeks to review symptoms and plan of care. Next colonoscopy will be due in 5 years as a screening exam due to family history. Activity:: Activity as Tolerated Diet:: As Tolerated DS: Diagnosis Discharge Diagnosis (1) Chronic diarrhea of unknown origin: Status: Acute (2) GERD (gastroesophageal reflux disease): (3) Family history of colon cancer: (4) Rectal bleeding: Status: Acute (5) Hiatal hernia with GERD without esophagitis: Status: Acute (6) Internal hemorrhoids without complication: Status: Acute
[2025-03-23 10:49] VITALS: BP 106/67; PULSE 82; RESP 16; TEMP 36.1; O2SAT 100
--- NOTE | 2025-03-23 10:50 | W.PM.DSUDISC ---
Date of service: 03/23/25 Discharge Plan Disposition Patient Disposition: Home Condition: Stable Discharge Details Reason For Visit: egd and colonoscopy - elective evaluation Attending Provider: Lexi Bravo Primary Care Provider: Lisa Khan Home Meds and New Rx's Prescriptions: New colestipol [Colestid] 1 gram tablet 1 g PO DAILY Qty: 30 3RF Continued cholecalciferol (vitamin D3) 1,250 mcg (50,000 unit) capsule 1,250 mcg PO QWEEK Qty: 10 0RF Rx Instructions: Take on Sundays, @ bedtime.. re-check ~ Mar 02 fluticasone propion-salmeterol [Advair HFA] 115-21 mcg/actuation HFA aerosol inhaler 2 puff inhalation BID omeprazole 40 mg capsule,delayed release(DR/EC) 40 mg PO DAILY Qty: 30 1RF albuterol sulfate [ProAir HFA] 90 mcg/actuation HFA aerosol inhaler 2 puff inhalation Q6H PRN (Reason: shortness of breath or wheezing) Qty: 8.5 2RF scopolamine base [Transderm-Scop] 1 mg over 3 days patch 3 day 1 patch transdermal Q3D PRN (Reason: nausea and vomiting) Qty: 4 0RF loperamide 2 mg capsule 2 mg PO Q6H PRN (Reason: loose stool) Qty: 7 0RF Discontinued bisacodyl [Dulcolax (bisacodyl)] 5 mg tablet,delayed release (DR/EC) 5 mg PO ONCE Qty: 4 0RF Rx Instructions: take per colonoscopy instructions polyethylene glycol 3350 17 gram/dose powder 238 g PO ONCE Qty: 238 0RF Rx Instructions: take per colonoscopy instructions Discharge Instructions Additional Instructions: Normal colonoscopy and overall normal EGD today. Reflux is because of a very small hiatal hernia that you have. These hernias are not repaired when we can control the reflux with mecication. Surgery is major and results do not last forever so I do not recommend it for you as treatment of your reflux. I recommend continuing to manage your reflux with medications from your PCP. Colonoscopy was nice and normal. Rectal bleeding is from hemorrhoids when it occurs. No mass/cancer lesion, no sign of inflammatory bowel disease. Biopsies taken to rule out microscopic colitis, but my suspicion is low at this time. I suspect you have bile salt induced diarrhea from your gallbladder surgery, and will start you on colestipol, a medication to slow that down. prescription sent. return to office in 2-4 weeks to review symptoms and plan of care. Next colonoscopy will be due in 5 years as a screening exam due to family history. Activity:: Activity as Tolerated Diet:: As Tolerated Discharge Orders Discharge Orders: Discharge Order (Routine); Ordered 03/23/25 Ordered By: Lexi Bravo DS: Diagnosis Discharge Diagnosis (1) Chronic diarrhea of unknown origin: Status: Acute (2) Rectal bleeding: Status: Acute (3) Hiatal hernia with GERD without esophagitis: Status: Acute (4) Internal hemorrhoids without complication: Status: Acute
--- NOTE | 2025-03-23 10:56 | W.ANESPOSTOP ---
Postoperative Evaluation Date, Time and Location Date Performed: 03/23/25 Time Performed: 10:56 Patient Location: Day Surgery Unit Vital Signs Most Recent Imported Vital Signs: Most Recent Vital Signs Temp Pulse Resp BP Pulse Ox 36.1 C L 82 16 106/67 100 03/23/25 10:49 03/23/25 10:49 03/23/25 10:49 03/23/25 10:49 03/23/25 10:49 Pain Score Most Recent Pain Score: Most Recent Pain Score Pain Level 0 03/23/25 10:49 Assessment Mental Status: Awake (Alert & Oriented to Patient Baseline) Airway and Respiratory Function: Patent airway with normal (patient baseline) respiratory exam Cardiovascular Function: Hemodynamically Stable Hydration Status: Adequately Hydrated Nausea & Vomiting: No Nausea or Vomiting Pain: Pt. Denies Any Pain Peripheral Nerve Block: Patient did not receive a nerve block
[2025-03-23 11:20] VITALS: BP 121/87; PULSE 68; RESP 16; TEMP 36.2; O2SAT 100
== END 2025-03-23 11:39 | disposition home or self-care (01) ==
PROVIDERS: PCP Student in an Organized Health Care Education/Training Program; Visit Provider Surgery
PROC: (CPT 45380; principal; 2025-03-23 10:00)
DX: K52.9 Noninfective gastroenteritis and colitis, unspecified (principal); K21.9 Gastro-esophageal reflux disease without esophagitis; Z80.0 Family history of malignant neoplasm of digestive organs; K62.5 Hemorrhage of anus and rectum; K44.9 Diaphragmatic hernia without obstruction or gangrene; K64.8 Other hemorrhoids
CPT/HCPCS: 45380; 43239; 88305; J2003; J2704

== ENCOUNTER → 2025-04-28 11:23 | Outpatient (CLI) | payer MEDICAID, SELFPAY ==
--- NOTE | 2025-04-28 11:15 | DI.US_ITS ---
Exam(s) US LOWER EXTREMITY VENOUS LT EXAM: US LOWER EXTREMITY VENOUS LT CLINICAL HISTORY: r/o DVT (+fam hx in M) and shen's cyst M79.662 M79.89 M25.562 PAIN TECHNIQUE: Grayscale, color, and doppler imaging of the deep venous system of the left lower extremity was performed. COMPARISON: US US BREAST LT COMPLETE from 04/24/2024 FINDINGS: There is no evidence of intraluminal thrombus and there is normal compression and augmentation demonstrated within the common femoral vein, femoral vein, and popliteal vein. In the ipsilateral calf the interrogated veins also exhibit normal compression/ augmentation properties. The ipsilateral saphenofemoral junction is patent. IMPRESSION: 1. No evidence of DVT in the left lower extremity. DATA REPOSITORY:
== END ==
LOC: DI 11:24
PROVIDERS: PCP Nurse Practitioner Adult Health; Visit Provider Nurse Practitioner Adult Health
DX: M79.662 Pain in left lower leg (principal); M79.89 Other specified soft tissue disorders; M25.562 Pain in left knee
CPT/HCPCS: 93971

== ENCOUNTER 2025-05-01 13:54 | Outpatient (REF) | payer MEDICAID, SELFPAY ==
[2025-05-01 15:53] LABS: Glucose Negative (Negative)
== END 2025-05-01 13:55 | disposition home or self-care (01) ==
LOC: LBN 13:54
PROVIDERS: PCP Nurse Practitioner Adult Health; Visit Provider Advanced Practice Midwife
DX: R30.0 Dysuria (principal); N89.8 Other specified noninflammatory disorders of vagina
CPT/HCPCS: 87077; 81003; 81015; 87086; 87186; 87480; 87510; 87660

== ENCOUNTER 2025-05-06 07:27 | Outpatient (CLI) | payer MEDICAID, SELFPAY ==
[2025-05-06 09:10] LABS: TSH (W/Ref FT4) 2.74 uIU/mL (0.55-4.78)
[2025-05-06 09:11] LABS: Ferritin 72 ng/mL (7-271)
[2025-05-06 09:12] LABS: ALT 8 U/L (10-49); AST 17 U/L (<34); Albumin 4.5 g/dL (3.4-5.0); Alkaline Phosphatase 61 U/L (46-116); Anion Gap 8.5 mmol/L (3-11); BUN 8 mg/dL (9-23); Bilirubin, Total 0.70 mg/dL (0.2-1.2); CO2 26.5 mmol/L (20.0-31.0); Calcium 9.2 mg/dL (8.3-10.6); Chloride 106 mmol/L (98-107); Cholesterol 217 mg/dL (<200); Glucose 85 mg/dL (74-106); HDL Cholesterol 69 mg/dL (>40); Potassium 3.5 mmol/L (3.5-5.1); Sodium 141 mmol/L (136-145); Total Protein 7.4 g/dL (5.7-8.2)
[2025-05-06 10:40] LABS: Lab Add On Test DONE
[2025-05-06 18:41] LABS: HIV-1/2 Ag & Ab Screen Negative (Negative)
[2025-05-06 18:46] LABS: Hepatitis C Ab w Rflx HCV PCR Negative (Negative)
== END 2025-05-06 07:28 | disposition home or self-care (01) ==
PROVIDERS: PCP Nurse Practitioner Adult Health; Visit Provider Nurse Practitioner Adult Health
DX: Z13.1 Encounter for screening for diabetes mellitus (principal); Z13.220 Encounter for screening for lipoid disorders; Z11.59 Encounter for screening for other viral diseases; Z11.4 Encounter for screening for human immunodeficiency virus [HIV]; Z12.31 Encounter for screening mammogram for malignant neoplasm of breast; F41.9 Anxiety disorder, unspecified
CPT/HCPCS: 36415; 80053; 80061; 86803; 87389; 82728; 84443

== ENCOUNTER → 2025-06-03 00:02 | Outpatient (CLI) | payer MEDICAID, SELFPAY ==
--- NOTE | 2025-06-03 07:45 | DI.MAMMO_ITS ---
Exam(s) MAMMO SCREENING EXAM: MAMMO SCREENING CLINICAL HISTORY: screening, Z12.39 TECHNIQUE: Mammograms were interpreted according to the usual protocol including computer analysis with CAD system, tomosynthesis and C-view imaging. COMPARISON: 2023 FINDINGS: The breasts are composed of heterogeneously dense fibroglandular densities, Breast Density category C. No suspicious masses or suspicious microcalcifications are seen. No skin thickening or abnormal axillary lymph nodes are seen. There has been no significant change from prior exams. IMPRESSION: BI-RADS Category 1, Negative mammogram. Yearly screening mammography is recommended. Breast Density: Category C - The breasts are heterogeneously dense, which may obscure small masses. Breast density Category C or D implies that the patient has dense breast tissue. Dense breast tissue can make it harder to find cancer on a mammogram. Dense breast tissue is also associated with an increased risk of breast cancer. This information about the result of the mammogram report was provided to the patient to raise their awareness. Use this report when you speak with the patient about their risks for breast cancer, which includes their family history. At that time, you may recommend additional screening tests (Ultrasound or MRI) as these tests may add significant information. A negative radiographic report should not delay biopsy if a dominant or clinically suspicious mass is present. Up to ten percent of cancers are not identified on mammography. A negative report may reinforce clinical impression. Adenosis and dense breasts may obscure an underlying neoplasm. False positive reports average 6 to 10%.
== END ==
LOC: DI 00:02
PROVIDERS: PCP Nurse Practitioner Adult Health; Visit Provider Nurse Practitioner Adult Health
DX: Z12.31 Encounter for screening mammogram for malignant neoplasm of breast (principal); R92.323 Mammographic fibroglandular density, bilateral breasts; R92.333 Mammographic heterogeneous density, bilateral breasts
CPT/HCPCS: 77063; 77067